=== PATIENT | female | born 1965 | race Hispanic/Latino ===

== ENCOUNTER 2017-07-26 18:18 | Observation (INO) | payer BC, SELFPAY ==
[~2017-07-26 18:18] MED LIST: ISOVUE-370 76%-LOCM 1 ML ONE
[2017-07-26 18:42] LABS: #Eosinphils 0.1 thou/uL (0.0-0.7); #Lymphocytes 1.6 thou/uL (1.20-3.40); #Monocytes 0.4 thou/uL (0.11-0.59); #Neutrophils 4.2 thou/uL (1.40-6.50); %Basophils 0.6 % (0.0-1.0); %Eosinophils 2.2 % (0.0-10.0); %Lymphocytes 24.9 % (21.0-51.0); %Monocytes 6.6 % (0.0-10.0); %Neutrophils 65.8 % (42.0-75.0); Hemoglobin 7.8 g/dL (12.0-16.0); Mean Corpuscular HGB CONC 30.9 g/dL (32.0-36.0); Mean Corpuscular Hemoglobin 20.7 pg (27.0-31.0); Mean Platelet Volume 8.2 fL (7.4-10.4); Platelet Count 206 thou/uL (130-400); RBC Distribution Width 15.5 % (11.5-14.5); Red Blood Cell (RBC) Count 3.76 mill/uL (4.20-5.40); White Blood Cell (WBC) Count 6.3 thou/uL (4.8-10.8)
[2017-07-26 18:55] LABS: Anisocytosis SLIGHT = 6-15 cells (100X) (0-5/hpf); Hypochromia SLIGHT = 6-15 cells (100X) (0-5/hpf); MDiff Complete? YES; Microcytosis SLIGHT = 6-15 cells (100X) (0-5/hpf); Ovalocytes SLIGHT = 2-5 cells (100X) (0-1/hpf); PLT Morphology Comment Appears Adequate; Polychromasia MODERATE = 3-4 cells (100X) (0-2/hpf); Target Cells SLIGHT = 2-5 cells (100X) (0-1/hpf)
[2017-07-26 19:05] LABS: ALT (SGPT) 15 U/L (8-55); AST (SGOT) 10 U/L (5-34); Albumin 4.2 g/dL (3.5-5.0); Alkaline Phosphatase 117 U/L (40-150); Anion Gap 10 mmol/L (10-20); BUN (Urea Nitrogen) 9 mg/dL (9.8-20.1); Bilirubin, Total 0.3 mg/dL (0.2-1.2); CK (CPK) 44 U/L (29-168); Calc. Creatinine Clearance 0 mL/min (70-130); Calcium 9.4 mg/dL (7.8-10.44); Carbon Dioxide 29 mmol/L (22-29); Chloride 104 mmol/L (98-107); Estimated GFR-MDRD 89; Globulin 3.3 g/dL (2.4-3.5); Glucose 75 mg/dL (70-105); Potassium 3.4 mmol/L (3.5-5.1); Protein, Total 7.5 g/dL (6.0-8.3); Sodium 140 mmol/L (136-145)
[2017-07-26 19:09] LABS: CKMB 0.6 ng/mL (0-6.6); Troponin I Less than 0.010 ng/mL (< 0.028)
--- NOTE | 2017-07-26 19:45 | RAD ---
SINGLE VIEW OF THE CHEST 07/26/17 COMPARISON: 12/24/16 HISTORY: Chest pain. FINDINGS: Single view of the chest shows a normal sized cardiomediastinal silhouette. There is no evidence of c onsolidation, mass, or pleural effusion. The bones are unremarkable. IMPRESSION: No evidence of acute cardiopulmonary disease. POS: [facility]
--- NOTE | 2017-07-26 21:17 | CT ---
CTA OF THE CHEST WITH CONTRAST 07/26/17 COMPARISON: None. HISTORY: Chest pressure off and on since yesterday evening. Elevated D-dimer. TECHNIQUE: Multiple contiguous axial images were obtained in a CTA of the chest with contrast per pulmonary embo lism protocol. 3D oblique reformats and direct coronal reformats were performed. FINDINGS: The pulmonary arteries are well opacified without filling defects to suggest pulmonary emboli. The he art is normal in size without focal cardiac abnormality. There is a mildly prominent AP window lymph node measuring 1.4 cm in short axis. No other enlarged mediastinal or hilar lymph nodes are present. No focal infiltrates are seen in the lungs. Atelectasis is seen in the lung bases. No pneumothorax or pleural effusion are seen. No suspicious pulmonary nodules are seen. The patient is status post cholecystectomy. Calcifications in the spleen are from prior granulomatous disease. The other visualized subdiaphragmatic structures are unremarkable. Degenerative changes are seen in the spine. The chest wall soft tissues are unremarkable. IMPRESSION: 1. No evidence of pulmonary thromboembolism. 2. Nonspecific mildly enlarged AP window lymph node. POS: [facility]
[2017-07-26 21:43] LABS: Iron 17 ug/dL (50-170); Iron Binding Capacity, Total 445 mcg/dL (265-497)
[2017-07-26 21:48] LABS: Ferritin Less than 2.00 ng/mL (10-291); Thyroid Stimulating Hormone 1.6034 uIU/mL (0.35-4.94)
[2017-07-26] MEDS ORDERED: Ondansetron ODT 4 MG TAB SL PRN (23:07)
[2017-07-26] MEDS ORDERED: Acetaminophen 325 MG TAB PO PRN ×2 (23:07→23:11)
[2017-07-26] MEDS ORDERED: Sodium Chloride 0.9% 1,000 ML IV SCH (23:07)
[2017-07-26] MEDS ORDERED: Ondansetron HCl/PF 4 MG/2 ML Vial IVP PRN ×2 (23:07→23:11)
[2017-07-26] MEDS ORDERED: Diabetic Tussin 200 MG/10 ML UDCUP PO PRN (23:11)
[2017-07-26] MEDS ORDERED: Senokot 8.6 MG TAB PO PRN (23:11)
[2017-07-26] MEDS ORDERED: Artificial Tears 18 DROP/0.9 ML EA EYE PRN (23:11)
[2017-07-26] MEDS ORDERED: Eucerin (Mineral Oil/Petrolatum,White) 30 gm Jar TOP PRN (23:11)
[2017-07-26] MEDS ORDERED: Dextrose 5% in Water 1,000 ML IV PRN (23:11)
[2017-07-26] MEDS ORDERED: HumaLOG 300 UNITS/3 ML VIAL SC PRN ×2 (23:11)
[2017-07-26] MEDS ORDERED: Dextrose 50% Abboject 50 ML SYRINGE SLOW IVP PRN (23:11)
[2017-07-26] MEDS ORDERED: HYDROcodone/Acetaminophen 5/325 mg Tablet PO PRN (23:11)
[2017-07-26] MEDS ORDERED: Chloraseptic Spray 180 ml Bottle PO PRN (23:11)
[2017-07-26] MEDS ORDERED: Sodium Chloride 0.65% Nasal 44 ML BOT EA NARE PRN (23:11)
[2017-07-26] MEDS ORDERED: Loratadine 10 MG TAB PO PRN (23:11)
[2017-07-26] MEDS ORDERED: Zolpidem Tartrate 5 MG TAB PO PRN (23:11)
[2017-07-26] MEDS ORDERED: Milk Of Magnesia 30 ML UDCUP PO PRN (23:11)
[2017-07-26] MEDS ORDERED: Loperamide HCl 2 MG CAP PO PRN (23:11)
[2017-07-26] MEDS ORDERED: Ondansetron ODT 4 MG TAB PO PRN (23:11)
[2017-07-26] MEDS ORDERED: hydrALAZINE 20 MG/ML VIAL SLOW IVP PRN (23:11)
[2017-07-26] MEDS ORDERED: Mag-Al 1200 mg/1200 mg/30 ML UDCUP PO PRN (23:11)
[2017-07-26] MEDS ORDERED: Morphine 5 MG/ML SYRINGE SLOW IVP PRN (23:14)
[2017-07-26 23:48] LABS: Troponin I Less than 0.010 ng/mL (< 0.028)
[2017-07-26] MEDS ORDERED: Iron Sucrose Complex 200 MG in Sodium Chloride 0.9% 250 ML 250 ML IVPB SCH (23:59)
[2017-07-27 00:13] VITALS: BMI 33.5
[2017-07-27] MEDS ORDERED: Acetaminophen/Codeine 30-300mg Tablet PO PRN (02:51)
[2017-07-27 03:20] LABS: Cardiac Risk 2.9 (Less than 4.5); Troponin I Less than 0.010 ng/mL (< 0.028)
--- NOTE | 2017-07-27 04:08 | HP ---
PRIMARY CARE PHYSICIAN: Dr. Soriano at [facility]. DATE OF SERVICE: 07/26/2017 REASON FOR ADMISSION: Chest pain. HISTORY OF PRESENT ILLNESS: A 52-year-old female with a history of coronary artery disease, diabetes, hypertension, and dyslipidemia who came to emergency room with complaint of chest pain. The patient reports that chest pain had occurs on exertion associated with shortness of breath, fatigue, and dizziness. She denies any melena or hematochezia. She denies any hematemesis associated nausea, vomiting or diaphoresis. She denies any orthopnea, PND or leg swelling. The patient reports that she has a history of DVT and she finished anticoagulant therapy in June. She denies any pleuritic chest pain. The patient does have history of coronary artery disease with a stent. With these symptoms, she presented to emergency room, she was having 8/10 in intensity pain. The patient's pain improved after morphine. REVIEW OF SYSTEMS: The following complete review of systems was negative, unless otherwise mentioned in the HPI or below: Constitutional: Weight loss or gain, ability to conduct usual activities. Skin: Rash, itching. Eyes: Double vision, pain. ENT/Mouth: Nose bleeding, neck stiffness, pain, tenderness. Cardiovascular: Palpitations, dyspnea on exertion, orthopnea. Respiratory: Shortness of breath, wheezing, cough, hemoptysis, fever or night sweats. Gastrointestinal: Poor appetite, abdominal pain, heartburn, nausea, vomiting, constipation, or diarrhea. Genitourinary: Urgency, frequency, dysuria, nocturia. Musculoskeletal: Pain, swelling. Neurologic/Psychiatric: Anxiety, depression. Allergy/Immunologic: Skin rash, bleeding tendency. Please see my HPI for pertinent positive and negative. All other review of system reviewed and negative except as mentioned in the HPI. PAST MEDICAL HISTORY: Gastroesophageal reflux disease, history of migraine headache, coronary artery disease with history of [place], history of DVT, history of ischemic CVA in 2008 with right-sided deficit, history of pericarditis, diabetes type 2 requiring insulin, dyslipidemia, hypertension, lupus, peripheral neuropathy, and T11 compression fracture. PAST SURGICAL HISTORY: Cardiac catheterization with stent placement, cholecystectomy, left hand surgery, tubal ligation. PAST PSYCHIATRIC HISTORY: Reviewed and negative. SOCIAL HISTORY: The patient is . She denies any tobacco, alcohol or illicit drug abuse. FAMILY HISTORY: Positive for coronary artery disease as well as cancer to family members. Diabetes and hypertension runs among several family members. ALLERGIES: METOPROLOL gives cough, NITROGLYCERIN gives rash. CURRENT HOME MEDICATIONS: Lyrica 150 mg p.o. b.i.d., aspirin 81 mg p.o. daily, gabapentin 100 mg 2 capsules 3 times daily, atenolol 50 mg twice daily, lisinopril 2.5 mg p.o. daily, Nexium 40 mg p.o. twice daily, Excedrin as needed basis, sucralfate 1 gram p.o. t.i.d., Lipitor 80 mg p.o. at bedtime, metformin 500 mg p.o. twice daily, and glipizide 5 mg twice daily. EMERGENCY ROOM COURSE: Reviewed. PHYSICAL EXAMINATION: VITAL SIGNS: On arrival, blood pressure 152/84, pulse 65, respiratory rate 22, temperature 98.1, saturation 98% on room air, weight 87.5 kilograms. GENERAL: The patient is currently alert, awake, no obvious acute distress. HEAD: Normocephalic, atraumatic. EYES: Pupils round, reactive to light. Conjunctivae pale. ENT: Oropharynx within normal limit. Pale mucous membrane. No oral lesion, no pharyngeal erythema, no exudate. NECK: Supple, no JVD, no thyromegaly, no carotid bruit. LUNGS: Clear to auscultation without any rhonchi or rales. CARDIAC: S1, S2 regular without any murmur. ABDOMEN: Soft, bowel sounds present, nontender, nondistended. No organomegaly , no mass, no suprapubic tenderness. BACK: Unremarkable, no CVA tenderness. EXTREMITIES: Upper extremities: Passive movement of all joints are normal. Lower extremities: No edema. Good peripheral pulsation, no calf tenderness. SKIN: No skin rash. HEMATOLOGICAL SYSTEM: No lymphadenopathy. PSYCHIATRIC: Normal affect. SIGNIFICANT LABS: EKG showing LVH, nonspecific ST-T changes. Chest x-ray based on my review, no acute cardiopulmonary process. CT angio negative for pulmonary embolism. CBC: WBC of 6.3, hemoglobin 7.8, MCV 67, platelet 206. D- dimer 0.84. BMP: Sodium 140, potassium 3.4, chloride 104, carbon dioxide 29, BUN 9, creatinine 0.69, glucose 75, calcium 9.4. LFT: AST 10, ALT 15, alkaline phosphatase 117, albumin 4.2. BNP 285.4. Iron 17, TIBC 445, percent iron saturation 4, ferritin less than 2. Cardiac enzymes negative. TSH 1.60. ASSESSMENT AND PLAN/IMPRESSION: 1. Chest pain, most likely related with anemia. She has underlying coronary artery disease with a stent as well as several risk factors for coronary artery disease. She had elevated D-dimer, but CT angio negative for pulmonary embolism. At this point, cardiac enzymes were negative. The patient will need admission for rule out acute coronary syndrome. We will do serial cardiac enzymes x3. We will check lipid profile for risk stratification and for diagnostic reason, we will perform stress test tomorrow morning. We will monitor on telemetry floor. Meanwhile, we will continue with aspirin 325 mg p.o. daily. 2. Iron deficiency anemia. Iron study consistent with iron deficiency anemia. This patient will be given iron infusion one time dose tonight and we will continue ferrous sulfate 325 mg p.o. b.i.d. This patient is instructed to get outpatient EGD and colonoscopy for evaluation of iron deficiency anemia. 3. Elevated D-dimer, but negative CT angio. 4. Elevated BNP. We will obtain echocardiography to assess ejection fraction and other structural abnormality, most likely related with hyperdynamic circulation from anemia. 5. Hypokalemia. We will replace potassium chloride 40 mEq p.o. one time dose. 6. Hypertension. We will continue lisinopril 2.5 mg p.o. daily. 7. Diabetes type 2. We will continue insulin as per sliding scale per protocol. Continue glipizide 5 mg p.o. b.i.d., metformin 500 mg p.o. b.i.d. 8. Diabetic neuropathy. Continue Lyrica 150 mg p.o. b.i.d. 9. Coronary artery disease. Continue aspirin 81 mg p.o. daily, atenolol 50 mg p.o. b.i.d. after stress test and Lipitor 80 mg p.o. at bedtime. 10. Dyslipidemia. Continue Lipitor 80 mg p.o. at bedtime. 11. Gastroesophageal reflux disease. Continue Pepcid 20 mg p.o. b.i.d. 12. Migraine headache. We will use Excedrin as needed basis. 13. Deep venous thrombosis prophylaxis not needed because we are expecting discharge in 24 hours. 14. Gastrointestinal prophylaxis. The patient is already on Pepcid therapy. 15. Code status: The patient is FULL CODE. Disposition plan based on clinical course. We are expecting patient's stay in hospital 24 hours. Plan of care discussed with the patient in detail. MTDD
[2017-07-27] MEDS ORDERED: glipiZIDE 5 MG TAB PO SCH (07:30)
[2017-07-27] MEDS ORDERED: Ferrous Sulfate 325 MG TAB PO SCH (08:00)
[2017-07-27 08:11] LABS: CKMB 0.4 ng/mL (0-6.6); Troponin I Less than 0.010 ng/mL (< 0.028)
[2017-07-27] MEDS ORDERED: Pregabalin 75 MG CAP PO SCH (09:00)
[2017-07-27] MEDS ORDERED: Aspirin 325 mg Enteric Coated Tablet PO SCH (09:00)
[2017-07-27] MEDS ORDERED: Lisinopril 2.5 MG TAB PO SCH (09:00)
[2017-07-27] MEDS ORDERED: Gabapentin 100 MG CAP PO SCH (09:00)
[2017-07-27] MEDS ORDERED: Aspirin 325 MG TAB PO SCH (09:00)
[2017-07-27] MEDS ORDERED: Famotidine 20 MG TAB PO SCH (09:00)
[2017-07-27] MEDS: Sucralfate 1 GM TAB PO SCH ×2 (12:30→12:31)
[2017-07-27 12:31] VITALS: BP 161/72; TEMP 98.5
[2017-07-27] MEDS: Metoclopramide HCl 10 MG TAB PO SCH ×2 (12:32)
--- NOTE | 2017-07-27 14:43 | NM ---
MYOCARDIAL PERFUSION EVALUATION: INDICATION: History of chest pain. RADIOPHARMACEUTICAL: 30 mCi Technetium 99m sestamibi with stress and 10.2 mCi Technetium 99m sestamibi IV with rest. COMPARISON: Prior exam dated 08/22/10. FINDINGS: There is a large-sized prominent defect involving the mid to apical anteroseptal wall as well as the basal to apical septal wall that is fixed on both the rest and stress images. No apparent wall thick ening is seen involving flow at this location. There is hypokinesis of the septum and anteroseptal w all. The LVF is diminished at 45%. IMPRESSION: 1. Large fixed defect involving the anteroseptal wall and septum suspicious for a large chronic myoc ardial infarct. There is hypokinesis involving the anteroseptal wall and septal wall on the gated im ages 2. Left ventricular ejection fraction is slightly diminished at 45%. Normal myocardial perfusion evaluation. 3. No new reversible myocardial perfusion defect evident. POS: [facility]
--- NOTE | 2017-07-27 15:06 | DIS ---
DATE OF ADMISSION: 07/26/2017 DATE OF DISCHARGE: 07/27/2017 PRIMARY CARE PROVIDER: Dr. Soriano. DISCHARGE DISPOSITION: Discharged home. DIAGNOSES: Noncardiac chest pain; iron deficiency anemia; hypertension; dyslipidemia; diabetes gaurav jade, type 2; coronary artery disease; polyneuropathy. DISCHARGE MEDICATIONS: Same as her home medicines. Nexium 40 mg twice a day, metformin 500 mg twice a day, metoclopramide 5 mg 3 times a day, Zestril 2.5 mg a day, gabapentin 200 mg 3 times a day, mc rvastatin 80 mg p.o. at bedtime, glipizide 5 mg twice a day, aspirin 81 mg a day, pregabalin 150 mg t wice a day, atenolol 50 mg twice a day, Tylenol with Codeine every 4 hours as needed for pain, sucral fate 1 gram q.i.d. ALLERGIES: NITROGLYCERIN from NITRO-BID AND METOPROLOL. HOSPITAL COURSE: Admitting complaint was chest pain described as exertional with some shortness of b reath. No other associated symptoms. Her stress test, she had a CTA of the thorax, which revealed n o evidence of pulmonary thromboembolism. Her laboratory comp metabolic profile revealed a minimal lo w potassium 3.4, otherwise normal. The patient's cardiac enzymes were normal. Patient had very low iron stores with less than 2 ferritin, hemoglobin revealed 7.8 with microcytic-microchromic indices. White count 6.3 and platelet count 206,000. The patient underwent a cardiac stress test with nuclea r medicine, which revealed a fixed defect with no reversible changes. Echocardiogram revealed an EF of 40%-45%. It is pertinent the patient is already on a beta jean and an RUMA inhibitor. Today, s he feels well. Vital signs are stable. Cardiorespiratory exam is normal. She is comfortable with [facility]. She is being discharged. CONSULTATIONS: None. PROCEDURES: None. FOLLOWUP: In [address] Montoya. DIET: Diabetes mellitus diet. ACTIVITY: As tolerated.
[2017-07-27] MEDS ORDERED: ADENOSINE 60 MG/20 ML VIAL ONE (15:15)
[2017-07-27] MEDS ORDERED: Atorvastatin Calcium 40 MG TAB PO SCH (21:00)
[2017-07-27] MEDS ORDERED: Cyclobenzaprine 10 MG TAB PO SCH (21:00)
--- NOTE | 2017-07-28 12:45 | ADD-DIS ---
ADDENDUM FOLLOWUP: The patient received IV iron infusion for severe iron deficiency anemia during her [facility] hospital stay.
== END 2017-07-27 15:53 | disposition home or self-care (01) ==
LOC: ERS 18:18 → 2SW 23:03
PROVIDERS: ADMIT Internal Medicine; ATTEND Internal Medicine
DX: R07.89 Other chest pain (principal); D50.9 Iron deficiency anemia, unspecified; I10 Essential (primary) hypertension; E78.5 Hyperlipidemia, unspecified; E11.42 Type 2 diabetes mellitus with diabetic polyneuropathy; K21.9 Gastro-esophageal reflux disease without esophagitis; G43.909 Migraine, unspecified, not intractable, without status migrainosus; I25.2 Old myocardial infarction; I69.351 Hemiplegia and hemiparesis following cerebral infarction affecting right dominant side; M32.9 Systemic lupus erythematosus, unspecified; E87.6 Hypokalemia; I25.10 Atherosclerotic heart disease of native coronary artery without angina pectoris; Z79.82 Long term (current) use of aspirin; Z79.84 Long term (current) use of oral hypoglycemic drugs; Z79.2 Long term (current) use of antibiotics; Z79.899 Other long term (current) drug therapy; Z88.8 Allergy status to other drugs, medicaments and biological substances; Z98.51 Tubal ligation status; Z95.5 Presence of coronary angioplasty implant and graft; Z90.49 Acquired absence of other specified parts of digestive tract; Z98.890 Other specified postprocedural states; Z86.718 Personal history of other venous thrombosis and embolism
CPT/HCPCS: 36415; 36416; 71045; 71275; 78452; 80053; 80061; 82553; 82728; 83540; 83550; 83880; 84443; 84484; 85025; 85379; 93005; 93017; 93306; 96365; 96366; 96375; J2270; A4216; A9500; G0378; J0153; J1756; J7050

== ENCOUNTER 2018-02-10 18:06 | Observation (INO) | payer BC, SELFPAY ==
[2018-02-10 19:09] LABS: Mean Corpuscular HGB CONC 31.5 g/dL (32.0-36.0); Mean Corpuscular Hemoglobin 22.9 pg (27.0-31.0); Mean Corpuscular Volume 72.6 fL (78.0-98.0); Platelet Count 293 thou/uL (130-400); RBC Distribution Width 19.3 % (11.5-14.5); Red Blood Cell (RBC) Count 4.83 mill/uL (4.20-5.40); White Blood Cell (WBC) Count 5.7 thou/uL (4.8-10.8)
[2018-02-10 19:18] LABS: ALT (SGPT) 12 U/L (8-55); AST (SGOT) 12 U/L (5-34); Albumin 4.2 g/dL (3.5-5.0); Alkaline Phosphatase 96 U/L (40-150); Anion Gap 15 mmol/L (10-20); BUN (Urea Nitrogen) 12 mg/dL (9.8-20.1); Bilirubin, Total 0.3 mg/dL (0.2-1.2); Calc. Creatinine Clearance 0 mL/min (70-130); Calcium 9.8 mg/dL (7.8-10.44); Carbon Dioxide 22 mmol/L (22-29); Chloride 103 mmol/L (98-107); Estimated GFR-MDRD 80; Glucose 182 mg/dL (70-105); Potassium 3.7 mmol/L (3.5-5.1); Protein, Total 8.2 g/dL (6.0-8.3); Sodium 136 mmol/L (136-145)
[2018-02-10 19:22] LABS: CKMB 0.3 ng/mL (0-6.6); Troponin I Less than 0.010 ng/mL (< 0.028)
--- NOTE | 2018-02-10 19:23 | RAD ---
PORTABLE CHEST: 02/10/18 HISTORY: Chest pain and pressure. COMPARISON: 07/26/17 exam. Heart size and mediastinum are within normal limits. The lungs are clear of any infiltrative process. IMPRESSION: No active intrathoracic disease. POS: [facility]
[2018-02-10 19:27] LABS: #Eosinphils 0.1 thou/uL (0.0-0.7); #Lymphocytes 1.6 thou/uL (1.20-3.40); #Monocytes 0.3 thou/uL (0.11-0.59); #Neutrophils 3.6 thou/uL (1.40-6.50); %Basophils 0.3 % (0.0-1.0); %Eosinophils 2.1 % (0.0-10.0); %Lymphocytes 28.8 % (21.0-51.0); %Monocytes 5.8 % (0.0-10.0); Anisocytosis SLIGHT = 6-15 cells (100X) (0-5/hpf); Hypochromia SLIGHT = 6-15 cells (100X) (0-5/hpf); MDiff Complete? YES; Microcytosis SLIGHT = 6-15 cells (100X) (0-5/hpf); PLT Morphology Comment Appears Adequate
[2018-02-10] MEDS ORDERED: Metoprolol Tartrate 5 MG/5 ML VIAL ONE (20:01)
[2018-02-10] MEDS ORDERED: Atenolol 25 MG TAB PO SCH (20:45)
[2018-02-10 22:56] LABS: Troponin I Less than 0.010 ng/mL (< 0.028)
[2018-02-10 23:13] VITALS: BMI 34.2
[2018-02-10] MEDS ORDERED: Ondansetron ODT 4 MG TAB SL PRN (23:20)
[2018-02-10] MEDS ORDERED: Ondansetron HCl/PF 4 MG/2 ML Vial IVP PRN (23:20)
[2018-02-10] MEDS ORDERED: Methocarbamol 500 MG TAB PO SCH (23:45)
[2018-02-10] MEDS ORDERED: Pregabalin 75 MG CAP PO SCH (23:45)
[2018-02-10] MEDS: Isosorbide Mononitrate 20 MG TAB PO SCH (23:49)
[2018-02-11 01:43] LABS: Troponin I Less than 0.010 ng/mL (< 0.028)
[2018-02-11 02:13] LABS: #Eosinphils 0.2 thou/uL (0.0-0.7); #Lymphocytes 1.8 thou/uL (1.20-3.40); #Monocytes 0.4 thou/uL (0.11-0.59); #Neutrophils 2.6 thou/uL (1.40-6.50); %Eosinophils 3.3 % (0.0-10.0); %Lymphocytes 35.5 % (21.0-51.0); %Neutrophils 53.3 % (42.0-75.0); Hemoglobin 9.5 g/dL (12.0-16.0); Mean Corpuscular HGB CONC 31.1 g/dL (32.0-36.0); Mean Corpuscular Hemoglobin 22.8 pg (27.0-31.0); Mean Corpuscular Volume 73.4 fL (78.0-98.0); Mean Platelet Volume 9.8 fL (7.4-10.4); Platelet Count 248 thou/uL (130-400); RBC Distribution Width 19.6 % (11.5-14.5); Red Blood Cell (RBC) Count 4.15 mill/uL (4.20-5.40); White Blood Cell (WBC) Count 4.9 thou/uL (4.8-10.8)
[2018-02-11 03:04] LABS: Anion Gap 15 mmol/L (10-20); BUN (Urea Nitrogen) 13 mg/dL (9.8-20.1); Calc. Creatinine Clearance 103 mL/min (70-130); Calcium 9.1 mg/dL (7.8-10.44); Carbon Dioxide 22 mmol/L (22-29); Chloride 103 mmol/L (98-107); Estimated GFR-MDRD 70; Glucose 262 mg/dL (70-105); Potassium 3.4 mmol/L (3.5-5.1); Sodium 137 mmol/L (136-145)
[2018-02-11] MEDS ORDERED: Dextrose 50% Abboject 50 ML SYRINGE SLOW IVP PRN (04:24)
[2018-02-11] MEDS ORDERED: Dextrose 5% in Water 1,000 ML IV PRN (04:24)
[2018-02-11] MEDS ORDERED: Nitroglycerin 0.4 MG TAB (25 Tab Bottle) SL PRN (04:50)
[2018-02-11] MEDS ORDERED: Morphine 2 MG/ML SYRINGE SLOW IVP PRN (04:50)
[2018-02-11] MEDS: Aspirin 325 mg Enteric Coated Tablet PO SCH (08:36)
[2018-02-11] MEDS: Pregabalin 75 MG CAP PO SCH ×2 (08:36→19:54)
[2018-02-11] MEDS: Isosorbide Mononitrate 20 MG TAB PO SCH ×3 (08:37→19:56)
[2018-02-11] MEDS: Methocarbamol 500 MG TAB PO SCH ×3 (08:38→19:55)
[2018-02-11] MEDS: Lisinopril 5 MG TAB PO SCH (08:38)
[2018-02-11] MEDS: Atenolol 25 MG TAB PO SCH ×2 (08:38→19:55)
[2018-02-11] MEDS ORDERED: Aspirin 325 MG TAB PO SCH (09:00)
[2018-02-11] MEDS: Acetaminophen 325 MG TAB PO PRN ×2 (10:42→21:28)
[2018-02-11 12:38] LABS: Hemoglobin 9.2 g/dL (12.0-16.0)
--- NOTE | 2018-02-11 12:51 | PDOC.PN ---
- Subjective Encounter Start Date: 02/11/18 Encounter Start Time: 08:30 Subjective: f/u on new admission for chest pain - Objective Resuscitation Status: Resuscitation Status FULL:Full Resuscitation Vital Signs & Weight: Vital Signs (12 hours) Temp Pulse Resp BP Pulse Ox 02/11/18 11:19 98.6 F 61 18 136/68 92 L 02/11/18 04:40 98.3 F 59 L 16 139/68 93 L 02/11/18 04:00 98.4 F 60 20 125/68 92 L Weight Weight 85.02 kg I&O: 02/10/18 02/11/18 02/12/18 06:59 06:59 06:59 Intake Total 390 Output Total 325 Balance 65 Result Diagrams: 02/11/18 11:51 02/11/18 01:05 Additional Labs: Accuchecks 02/11/18 02/11/18 02/10/18 10:34 04:59 23:02 POC Glucose 246 H 267 H 200 H Phys Exam - Physical Examination HEENT: PERRLA, moist MMs, sclera anicteric Neck: no nodes, no JVD Respiratory: clear to auscultation bilateral Cardiovascular: RRR Musculoskeletal: no edema, pulses present Neurological: non-focal, normal sensation, moves all 4 limbs Lymphatic: no nodes Psychiatric: normal affect, A&O x 3 Skin: no rash, normal turgor, cap refill <2 seconds Dx/Plan (1) Chest pain Code(s): R07.9 - CHEST PAIN, UNSPECIFIED Status: Acute (2) DM type 2 (diabetes mellitus, type 2) Status: Chronic (3) Iron deficiency anemia Code(s): D50.9 - IRON DEFICIENCY ANEMIA, UNSPECIFIED Status: Chronic Qualifiers: Iron deficiency anemia type: chronic blood loss Qualified Code(s): D50.0 - Iron deficiency anemia secondary to blood loss (chronic) (4) HTN (hypertension) Code(s): I10 - ESSENTIAL (PRIMARY) HYPERTENSION Status: Chronic (5) GERD (gastroesophageal reflux disease) Code(s): K21.9 - GASTRO-ESOPHAGEAL REFLUX DISEASE WITHOUT ESOPHAGITIS Status: Chronic (6) Neuropathy Code(s): G62.9 - POLYNEUROPATHY, UNSPECIFIED Status: Chronic (7) Migraine Code(s): G43.909 - MIGRAINE, UNSP, NOT INTRACTABLE, WITHOUT STATUS MIGRAINOSUS Status: Chronic - Plan cont current plan of care, plan discussed w/ family, DVT proph w/SCDs -: Cardiology consult -: Monitor labs -: Get records from last stress test/heart cath from [facility] -: continue home meds * .
--- NOTE | 2018-02-11 15:52 | HP ---
DATE OF EVALUATION: 02/11/2018 at 0800. PRIMARY CARE PHYSICIAN: Elias Soriano MD The patient is a FULL CODE. CHIEF COMPLAINT: Chest pain and pressure. HISTORY OF PRESENT ILLNESS: She is a 53-year-old female with a history of cardiac disease, who prese nted to the ER on 02/10/2018 with chest pain, nausea, dizziness, and generally feeling weak x2 days. Reports an DC and stent placement 1 year ago. Reports she had a positive stress test and a cardiac catheterization 6 weeks ago in [place] where she was visiting her son. She reports they told her, her stent was blocked and she had another vessel with blockage, but declined to do any intervention due to her anemia, reports taking aspirin 325 daily, and she has a HeartScore of 5. EKG, 65 beats pe r minute. ST normal, LVH with strain. The patient was admitted to the hospital for further manageme nt and cardiology consultation. REVIEW OF SYSTEMS: Constitutional: The patient reports general weakness. Denies chills. Denies fe barrera. Eyes: Negative review of systems. ENT: Negative ears, nose, and throat review of systems. C ardiovascular: The patient reports chest pain, denies palpitations, denies orthopnea. Respiratory S ystem: Negative review of systems. Denies cough or shortness of breath. Gastrointestinal: The pat ient reports nausea. Denies abdominal pain. Denies constipation or diarrhea. Musculoskeletal: Neg ative review. Skin: Negative review of systems. Neurologic: Patient reports dizziness and reports headache. Endocrine: Negative review of systems. Heme/Lymphatic: Normal system review. Psychiat catherine: Negative review of systems. All other review of systems negative except which are listed in th e HPI. PHYSICAL EXAMINATION: CONSTITUTIONAL: Vital signs are reviewed. Temperature 98.4, pulse is 60, respirations 20, O2 sats 9 2 on room air, blood pressure 125/68. The patient appears nontoxic. She is alert and oriented, is i n no distress. HEENT: Head includes findings of atraumatic and normocephalic exam. Eyes: Eyelids Normal to inspec tion. PERRLA. ENT: Nose exam normal, no nasal defect. No bleeding. Mouth with moist membranes. NECK: Normal range of motion. Trachea is midline. RESPIRATORY: Chest exam is normal. Breath sounds are clear. No wheezing, no rales. Chest movement is symmetrical. Chest expansion is equal. CARDIOVASCULAR: Cardiovascular assessment has normal heart rate and rhythm. Heart sounds are normal . No rubs or gallops are noted. ABDOMINAL/FEMALE: Including nontender. Bowel sounds are normal. No peritoneal signs. BACK: Normal inspection, range of motion. EXTREMITIES: Moves all extremities, upper and lower. NEURO: The patient is oriented to person, place, and time. Speech is normal. No focal defects. SKIN: Warm, dry, normal in color. LYMPHATIC: Normal. PSYCHIATRIC: Also normal. The patient is oriented to person, place, and time. LABORATORY DATA: White blood cell count is 5.7, RBCs are 4.83, hemoglobin is 11, hematocrit is 35, p latelet count is 293. Sodium is 137, potassium is 3.4, chloride is 103, BUN is 13, creatinine is 0.8 5, GFR is 70, glucose is 262, calcium is 9.1. Troponins x3 are negative. CK-MB is 0.3. PAST MEDICAL HISTORY: Patient reports history of GERD, migraine headaches, significant cardiac histo ry including an DC and stent placement in 06/2016. Reports positive stress test and a cardiac cathet erization 6 weeks ago in [place]. Reports an ischemic CVA in 2008 with some right-sided defects; history of pericarditis; history of a DVT; history of diabetes, type 2, on p.o. and insulin; history of hyperlipidemia; history of hypertension; history of lupus; history of peripheral neuropathy; and h istory of rib fracture on T11. PAST SURGICAL HISTORY: Heart stent x1, cholecystectomy, and a tubal ligation. She has had a cardiac catheterization x2. PSYCHIATRIC HISTORY: No previous psychiatric history is noted. SOCIAL HISTORY: Denies alcohol use or drug use. No smoking. FAMILY HISTORY: Paternal history of cardiac disease and cancer. Maternal history of diabetes, hyper lipidemia, and hypertension. Maternal history also of cancer. ALLERGIES: METOPROLOL and TRANSDERMAL NITROGLYCERIN. CURRENT MEDICATIONS: Include aspirin 325 mg p.o. daily, Excedrin 2 tabs p.o. b.i.d., atenolol 25 mg p.o. b.i.d., Nexium 40 mg p.o. b.i.d., glipizide 5 mg p.o. b.i.d., NovoLog 15 units subcu t.i.d., iso sorbide 10 mg p.o. b.i.d., lisinopril 5 mg p.o. daily, metformin 500 mg p.o. b.i.d., Robaxin 500 mg p .o. t.i.d., nitroglycerin sublingual 0.4 mg every 5 minutes as needed, and Lyrica 150 mg p.o. b.i.d. IMAGING: She had a chest x-ray that showed no acute findings. ASSESSMENT AND PLAN: 1. Chest pain. We will obtain the records from the [facility] where she was seen 6 weeks a go and had a positive stress test and cardiac catheterization. We will consult Cardiology. Dr. Dao andrews is her conference center manager. 2. Hypertension. We will continue the isosorbide 10 mg p.o. b.i.d. 3. Diabetes mellitus. We will continue the metformin 500 mg b.i.d., glipizide 5 mg p.o. b.i.d., and Humalog 15 units subcutaneous t.i.d. 4. Diabetic neuropathy. We will continue the Lyrica 150 mg p.o. b.i.d. 5. Coronary artery disease. We will continue the aspirin and atenolol. 6. Gastroesophageal reflux disease. We will continue the Pepcid 20 mg p.o. b.i.d. and then Nexium 4 0 mg p.o. b.i.d. 7. Migraine. Excedrin as needed. 8. We will give the deep vein thrombosis prophylaxis, mechanical. Disposition plan, depends on clinical course.
[2018-02-11] MEDS: HumaLOG 300 UNITS/3 ML VIAL SC PRN (17:24)
[2018-02-12] MEDS: HumaLOG 300 UNITS/3 ML VIAL SC PRN ×2 (05:10→12:15)
[2018-02-12] MEDS: Pregabalin 75 MG CAP PO SCH (08:29)
[2018-02-12] MEDS: Atenolol 25 MG TAB PO SCH (08:30)
[2018-02-12] MEDS: Aspirin 325 mg Enteric Coated Tablet PO SCH (08:30)
[2018-02-12] MEDS: Lisinopril 5 MG TAB PO SCH (08:30)
[2018-02-12] MEDS: Methocarbamol 500 MG TAB PO SCH ×2 (08:31→16:29)
[2018-02-12] MEDS: Isosorbide Mononitrate 20 MG TAB PO SCH (08:31)
[2018-02-12 08:49] LABS: #Eosinphils 0.1 thou/uL (0.0-0.7); #Lymphocytes 1.2 thou/uL (1.20-3.40); #Monocytes 0.3 thou/uL (0.11-0.59); #Neutrophils 2.9 thou/uL (1.40-6.50); %Basophils 0.1 % (0.0-1.0); %Lymphocytes 26.1 % (21.0-51.0); %Monocytes 6.4 % (0.0-10.0); %Neutrophils 64.4 % (42.0-75.0); Hemoglobin 9.6 g/dL (12.0-16.0); Mean Corpuscular HGB CONC 31.6 g/dL (32.0-36.0); Mean Corpuscular Hemoglobin 22.9 pg (27.0-31.0); Mean Corpuscular Volume 72.5 fL (78.0-98.0); Platelet Count 231 thou/uL (130-400); RBC Distribution Width 19.1 % (11.5-14.5); White Blood Cell (WBC) Count 4.6 thou/uL (4.8-10.8)
[2018-02-12 09:14] LABS: ALT (SGPT) 10 U/L (8-55); AST (SGOT) 9 U/L (5-34); Albumin 3.7 g/dL (3.5-5.0); Alkaline Phosphatase 83 U/L (40-150); Anion Gap 12 mmol/L (10-20); BUN (Urea Nitrogen) 13 mg/dL (9.8-20.1); Bilirubin, Total 0.2 mg/dL (0.2-1.2); Calc. Creatinine Clearance 111 mL/min (70-130); Calcium 9.2 mg/dL (7.8-10.44); Carbon Dioxide 24 mmol/L (22-29); Chloride 104 mmol/L (98-107); Estimated GFR-MDRD 78; Globulin 3.3 g/dL (2.4-3.5); Glucose 214 mg/dL (70-105); Potassium 3.4 mmol/L (3.5-5.1); Sodium 137 mmol/L (136-145)
[2018-02-12 09:21] VITALS: TEMP 97.5
[2018-02-12] MEDS ORDERED: Aspirin/APAP/Caffeine Tab (Excedrin Migraine) PO PRN (10:03)
--- NOTE | 2018-02-12 11:18 | CON ---
DATE OF SERVICE: 02/12/2018 REASON FOR CONSULTATION: Recurrent chest pain. HISTORY OF PRESENT ILLNESS: Ms. Matos is a 53-year-old woman who recently presented with chest pa in. She describes it as a dull, substernal discomfort. No other ameliorating, exacerbating, or prec ipitating factors present. The patient is a patient of Dr. Rosa Lopez. She underwent coronary an giography in 06/2016 and underwent successful stent placement to the mid left anterior descending wit h a 2.75 x 20 mm Synergy stent. She states in November of this year, she also had recurrent pain. She was seen in outlying facility an d underwent coronary angiography. She was told she had a lesion that could potentially be revascular ized. Details are unknown. It was decided not to proceed with any further intervention due to anemi a. Again, hemoglobin at the outlying facility is unknown. PAST MEDICAL HISTORY: Coronary artery disease status post stent placement, acid reflux, migraine hea daches, CVA, diabetes mellitus, hyperlipidemia, peripheral neuropathy, cholecystectomy, BTL. SOCIAL HISTORY: No current tobacco or alcohol use. ALLERGIES: METOPROLOL and NITROGLYCERIN. HOME MEDICATIONS: Aspirin, Excedrin, glipizide, NovoLog, metformin, lisinopril, isosorbide, Robaxin and Lyrica. REVIEW OF SYSTEMS: Ten-point review of systems is reviewed and is as above, otherwise negative. PHYSICAL EXAMINATION: VITAL SIGNS: Blood pressure 141/66, pulse 62, temperature afebrile. GENERAL: Patient is a pleasant female who is in no acute distress. The patient appears her stated age. NEUROLOGIC: The patient is alert and oriented times 3 with no focal neurologic deficits. HEENT: Sclerae without icterus. Mouth has moist mucous membranes with normal pallor. NECK: No JVD. Carotid upstroke brisk. No bruits bilaterally. LUNGS: Clear to auscultation with unlabored respirations. BACK: No scoliosis or kyphosis. CARDIAC: Regular rate and rhythm with normal S1 and S2. No S3 or S4 noted. No significant rubs, murmurs, thrills, or gallops noted throughout the precordium. PMI is not displaced. There is no parasternal heave. ABDOMEN: Soft, nontender, nondistended. No peritoneal signs present. No hepatosplenomegaly. No abnormal striae. EXTREMITIES: 2+ femoral and 2+ dorsalis pedis pulses. No cyanosis, clubbing, or edema. SKIN: No gross abnormalities. PERTINENT LABS: CK and troponin negative. Hemoglobin is 9.5. IMPRESSION: 1. Angina. 2. Coronary artery disease. 3. Status post stent placement. RECOMMENDATIONS: It is of utmost importance to try and obtain records from [place]. She u nderwent coronary angiography recently. No need to proceed with angiography unless we know the findi ngs on angio performed less than 2 months ago. At this point, we will treat medically until those re cords are obtained and reviewed.
[2018-02-12] MEDS ORDERED: Isosorbide Mononitrate 20 MG TAB PO SCH (14:24)
[2018-02-12 15:08] VITALS: BP 162/81
--- NOTE | 2018-02-12 15:31 | PRG ---
DATE OF SERVICE: 02/12/2018. HISTORY OF PRESENT ILLNESS: Ms. Matos is doing well, no current complaints. No chest pain or pre ssure noted. I did review her recent angiogram before 1 month ago. She has an occluded stent to the left anterior descending in addition occluded stent to the right coronary artery. The right coronar y artery was very difficult to engage. PHYSICAL EXAMINATION: VITAL SIGNS: Blood pressure 140/66, pulse 60, temperature 97.5. LUNGS: Clear to auscultation. CARDIAC: Regular rate and rhythm. ABDOMEN: Soft, nontender, nondistended. EXTREMITIES: No edema. IMPRESSION: 1. Chronic stable angina. 2. Coronary artery disease. RECOMMENDATIONS: I discussed option with Ms. Matos. She could stay overnight and discuss t his further with Dr. Lopez with potential angiography and attempted revascularization which would be difficult. I also discussed increasing medical therapy. At this point, I have discussed the risks and benefits of both, she decided to proceed with medical therapy. We will increase her isosorbide t o 20 mg b.i.d. We would for discussing Ranexa. Plan is to follow up with Dr. Lopez in the next 1-2 weeks.
[2018-02-12] MEDS ORDERED: metFORMIN 500 MG TAB PO SCH (17:00)
--- NOTE | 2018-02-12 22:36 | DIS ---
DATE OF ADMISSION: 02/10/2018 DATE OF DISCHARGE: 02/12/2018 CODE STATUS: FULL. DISCHARGE DIAGNOSES: 1. Angina. 2. Iron deficiency anemia. 3. Gastroesophageal reflux disease. 4. Hypertension. 5. Neuropathy. 6. Diabetes mellitus 2. 7. Obesity. 8. Chronic kidney disease. 9. Hyperlipidemia. 10. Migraine. PROCEDURES: Chest x-ray in the ER on 02/10/2018 showed no acute process. CONSULTANTS: Dr. Canseco for Cardiology. Vital signs on discharge 97.5 temperature, pulse is 62, 18 respirations, 93% on room air, blood press ure 141/66. REVIEW OF SYSTEMS: CONSTITUTIONAL: The patient states she feels well. Denies any complaints. Denies fevers or chills. EYES: Negative review of systems. ENT: Negative ears, nose and throat review of systems. CARDIOVASCULAR: Denies any chest pain. Denies palpitations, denies orthopnea. RESPIRATORY: Denies any shortness of breath or dizziness. Denies cough or shortness of breath. GASTROINTESTINAL: The patient denies any nausea, vomiting or diarrhea. Denies abdominal pain, denie s constipation or diarrhea. MUSCULOSKELETAL: Negative review. SKIN: Warm and dry. Denies any rashes. NEUROLOGIC: Patient denies any dizziness. Does report a headache. ENDOCRINE: Negative review of systems. HEME/LYMPHATIC: Normal review of systems. PSYCH: Negative review of systems and all other review of systems negative except which are listed i n the history of present illness and hospital course. PHYSICAL EXAMINATION: CONSTITUTIONAL/VITAL SIGNS: As stated above. HEENT: Atraumatic and normocephalic exam. Eyes, eyelids are normal to inspection. PERRLA. Nose ex am is normal. No bleeding. Mouth with moist membranes. NECK: Normal range of motion. Trachea is midline. RESPIRATORY: Breath sounds are equal. No wheezing or rales. Chest movement is symmetrical. Chest expansion is equal. CARDIOVASCULAR: Normal heart rate and rhythm. Heart sounds are normal. No rubs or gallops. ABDOMEN: Nontender. Bowel sounds are normal. No peritoneal signs. BACK: Normal inspection, normal range of motion. EXTREMITIES: Moves all extremities. No peripheral edema. NEUROLOGIC: Patient is oriented to person, place and time. Speech is normal. No focal defects. SKIN: Warm, dry, normal in color. LYMPHATIC: Normal. PSYCHIATRIC: She is pleasant, oriented to person, place, and time. LABORATORY DATA: Today, 02/12/2018 white blood cell count 4.6, hemoglobin was 9.6, hematocrit 30.4, MCV 72.5, MCH 22.9, MCHC 31.6, RDW count 19.1, platelets were 231, sodium 137, potassium 3.4, chlorid e 104, carbon dioxide 24, gap 12, BUN is 13, creatinine is 0.77, estimated GFR is 78, glucose 214, ca lcium 9.2, bilirubin 0.2, AST is 9, ALT is 10, alkaline phosphatase is 83, CK-MB 0.3. Troponins, she had three done which were all negative. Albumin 3.7, globulin 3.3. HOSPITAL COURSE: A 53-year-old female who presented to the ED on 02/10/2018 for chest pain, dizzines s, generally feeling weak for 2 days. Patient with a cardiac stent placed on 06/2006. Echo repeated in 06/2017 with an EF of 40%. She states she had similar symptoms 6 weeks ago in [place] and und erwent a heart catheterization there. Reports that the coding director decided not to do any interventi ons and was sent home for further workup. Dr. Canseco saw patient in the hospital here and recomme nded that she can go home and increased her isosorbide to 20 mg b.i.d. DISCHARGE MEDICATIONS: She will be sent home on aspirin 325 mg p.o. daily, Excedrin 2 tabs p.o. b.i. d., atenolol 25 mg p.o. b.i.d., Nexium 40 mg p.o. b.i.d., glipizide 5 mg p.o. b.i.d., NovoLog 15 unit s subcu t.i.d., isosorbide increased to 20 mg p.o. b.i.d., Zestril 5 mg p.o. daily, metformin 500 mg p.o. b.i.d., Robaxin 500 mg p.o. t.i.d., nitroglycerin 0.4 mg tablets sublingual every 5 minutes x3 a s needed for chest pain, Lyrica 150 mg p.o. b.i.d., CONDITION ON DISCHARGE: Stable. She was discharged home and will need to follow up with Dr. Soriano within 1 week.
--- NOTE | 2018-02-13 12:40 | HP ---
PRIMARY CARE PHYSICIAN: Elias Soriano MD CODE STATUS: FULL CODE. TIME OF EVALUATION: 8:25 p.m. CHIEF COMPLAINT: Chest pain. HISTORY OF PRESENT ILLNESS: This is a 53-year-old female patient with past medical history of prior coronary artery disease. The patient reported her cardiac catheterization done a few weeks ago in [facility] that was positive for blockage, so we will try to get those records from [place] for the patient who was seen by Dr. Lopez to see what further plans will be. She also has a history of diab etes, hyperlipidemia, hypertension, lupus, came to the hospital after having chest pain that was in t he middle of the chest that was started in the past 2 days, although in the past few weeks, it has be en on and off. Pain is worsened with exertion and improved with nitroglycerin and rest, associated w ith nausea and headache. Pain was reported as moderate. REVIEW OF SYSTEMS: Constitutional: No fever, chills, or generalized weakness. Respiratory: No cou gh, no sputum production, no shortness of breath. Cardiovascular: Chest pain. No palpitations. Ga strointestinal: No nausea, no vomiting, diarrhea or abdominal pain. Central Nervous Systems: No di zziness, headache, or feeling lightheaded. Genitourinary: No burning on urination. Extremities: N o leg swelling. All other systems were reviewed and negative except for the findings mentioned above . PAST MEDICAL HISTORY: As mentioned in the HPI. PAST SURGICAL HISTORY: Positive for heart stent x1, cholecystectomy, left hand for dystrophy, and tu bal ligation. PSYCHIATRIC HISTORY: No previous psych history. SOCIAL HISTORY: No alcohol, no drugs, no smoking history. FAMILY HISTORY: Positive for father with history of malignancy of the lung, mother with type 2 diabe tiffany, hyperlipidemia, hypertension. KNOWN ALLERGIES: METOPROLOL, NITROGLYCERIN. REPORTED MEDICATIONS: Lyrica, aspirin, atenolol, lisinopril, Nexium, Excedrine, metformin, glipizide , Robaxin, NovoLog, FlexPen insulin, isosorbide. PHYSICAL EXAMINATION: VITAL SIGNS: On presentation, blood pressure 194/79 with heart rate 69, respiratory rate was 18, tem perature 98.6, pain was 7, oxygen saturation was 94% on room air. GENERAL APPEARANCE: Patient is alert, oriented, not in any acute distress. HEENT: Eye, normal conjunctivae. Moist oral mucosa. anicteric. NECK: No JVD. RESPIRATORY: Bilateral air entry. No rales, no wheezing. Symmetric expansion. CARDIOVASCULAR: Normal rate, regular rhythm. No murmurs, no gallop. EXTREMITIES: No edema. ABDOMEN: Soft, normal bowel sounds. MUSCULOSKELETAL: Baseline range of motion and strength. No tenderness. Peripheral pulses are prese nt. Capillary refill seems to be intact. SKIN: Warm and intact. No pallor, no rash, no redness. NEUROLOGIC: No evidence of any new focal weakness. Baseline speech. Cranial nerves seem to be inta ct. PSYCHIATRIC: The patient is in good mood. No anxiety. Oriented, optimal judgment. IMAGING: EKG was discussed with the performing physician from ER. The patient has normal sinus rhyt hm with a rate of 65, left ventricular hypertrophy. RADIOLOGY: Chest films are negative, no infiltrates, no pneumothorax or hemothorax. No CHF. LABORATORY DATA: Reviewed. The patient has white count 5.7, hemoglobin 11, MCV 72, platelet count 2 93,000. Sodium 136, potassium 3.7, chloride 103, carbon dioxide 22, anion gap 15, BUN 12, creatinine 0.7, GFR 80, glucose 182, calcium 9.8, total bilirubin 0.3. AST, ALT, and alkaline phosphatase are normal. Troponin is negative x3. ASSESSMENT AND PLAN: The patient will be place in the hospital with following medical problems: 1. Chest pain, rule out acute coronary syndrome. The patient has a history of coronary artery disea se. She reported that she got a cardiac catheterization done a week or so in [place], it was posi tive, she has follow up with Dr. Lopez before in the hospital. We will put a consult for evaluation given high pretest probability for a stress test. We will defer to Cardiology for further treatment and workup. We will monitor on tele. We will treat accordingly. 2. Uncontrolled diabetes. Patient has hyperglycemia, place the patient on sliding scale. 3. History of gastroesophageal reflux disease. We will reconcile home medications, continue pantopr azole. 4. Diabetic polyneuropathy. Continue Lyrica. 5. History of coronary artery disease, . 6. Deep venous thrombosis prophylaxis.
--- NOTE | 2018-02-18 11:43 | EKG ---
Test Reason : Blood Pressure : / mmHG Vent. Rate : 065 BPM Atrial Rate : 065 BPM P-R Int : 172 ms QRS Dur : 090 ms QT Int : 420 ms P-R-T Axes : -09 -20 071 degrees QTc Int : 436 ms Normal sinus rhythm Voltage criteria for left ventricular hypertrophy Abnormal ECG #1 Confirmed by NITA CASILLAS MD ([id number]), editorial writer ANKIT MENA ([id number]) on 02/18/2018 11:43:30 AM Referred By: Confirmed By:NITA CASILLAS MD
--- NOTE | 2018-02-18 11:44 | EKG ---
Test Reason : Blood Pressure : / mmHG Vent. Rate : 067 BPM Atrial Rate : 067 BPM P-R Int : 174 ms QRS Dur : 092 ms QT Int : 408 ms P-R-T Axes : -10 -16 069 degrees QTc Int : 431 ms Normal sinus rhythm Voltage criteria for left ventricular hypertrophy Cannot rule out Septal infarct , age undetermined Abnormal ECG #2 Confirmed by NITA CASILLAS MD ([id number]), editorial manager ANKIT MENA ([id number]) on 02/18/2018 11:43:40 AM Referred By: SONJA Confirmed By:NITA CASILLAS MD
== END 2018-02-12 17:17 | disposition home or self-care (01) ==
LOC: ERS 18:06 → 2SW 20:20
PROVIDERS: ADMIT Hospitalist; ATTEND Hospitalist
DX: I25.118 Atherosclerotic heart disease of native coronary artery with other forms of angina pectoris (principal); E78.5 Hyperlipidemia, unspecified; M32.9 Systemic lupus erythematosus, unspecified; E11.65 Type 2 diabetes mellitus with hyperglycemia; E11.42 Type 2 diabetes mellitus with diabetic polyneuropathy; K21.9 Gastro-esophageal reflux disease without esophagitis; G43.909 Migraine, unspecified, not intractable, without status migrainosus; I25.2 Old myocardial infarction; I69.151 Hemiplegia and hemiparesis following nontraumatic intracerebral hemorrhage affecting right dominant side; D50.9 Iron deficiency anemia, unspecified; I12.9 Hypertensive chronic kidney disease with stage 1 through stage 4 chronic kidney disease, or unspecified chronic kidney disease; E11.22 Type 2 diabetes mellitus with diabetic chronic kidney disease; N18.9 Chronic kidney disease, unspecified; E66.9 Obesity, unspecified; Z68.33 Body mass index [BMI] 33.0-33.9, adult; Z95.5 Presence of coronary angioplasty implant and graft; Z88.8 Allergy status to other drugs, medicaments and biological substances; Z79.82 Long term (current) use of aspirin; Z79.4 Long term (current) use of insulin; Z79.899 Other long term (current) drug therapy; Z86.718 Personal history of other venous thrombosis and embolism
CPT/HCPCS: 36415; 36416; 71045; 80048; 80053; 82274; 82553; 84484; 85025; 90471; 90686; 93005; G0008; G0378

== ENCOUNTER 2018-04-29 15:08 | Inpatient (IN) | payer MEDICAID, SELFPAY ==
[~2018-04-29 15:08] MED LIST changes: -ISOVUE-370 76%-LOCM 1 ML ONE; +Iopamidol 370 76% 100 ML VIAL ONE
[2018-04-29 15:37] LABS: #Basophils 0.1 thou/uL (0.0-0.2); #Eosinphils 0.2 thou/uL (0.0-0.7); #Lymphocytes 2.1 thou/uL (1.20-3.40); #Monocytes 0.5 thou/uL (0.11-0.59); #Neutrophils 5.9 thou/uL (1.40-6.50); %Basophils 0.6 % (0.0-1.0); %Eosinophils 2.2 % (0.0-10.0); %Monocytes 5.5 % (0.0-10.0); %Neutrophils 67.6 % (42.0-75.0); Hemoglobin 10.8 g/dL (12.0-16.0); Mean Corpuscular HGB CONC 33.2 g/dL (32.0-36.0); Mean Corpuscular Hemoglobin 24.7 pg (27.0-31.0); Mean Corpuscular Volume 74.2 fL (78.0-98.0); Mean Platelet Volume 8.5 fL (7.4-10.4); Platelet Count 236 thou/uL (130-400); Red Blood Cell (RBC) Count 4.37 mill/uL (4.20-5.40); White Blood Cell (WBC) Count 8.8 thou/uL (4.8-10.8)
[2018-04-29 15:44] LABS: Prothrombin Time 13.3 SEC (12.0-14.7)
[2018-04-29 15:50] LABS: Anisocytosis SLIGHT = 6-15 cells (100X) (0-5/hpf); Hypochromia SLIGHT = 6-15 cells (100X) (0-5/hpf); MDiff Complete? YES; Microcytosis SLIGHT = 6-15 cells (100X) (0-5/hpf); Platelet Morphology Comment Appears Adequate; Polychromasia SLIGHT = 2-3 cells (100X) (0-2/hpf)
[2018-04-29 16:25] LABS: ALT (SGPT) 11 U/L (8-55); AST (SGOT) 14 U/L (5-34); Albumin 4.2 g/dL (3.5-5.0); Alkaline Phosphatase 109 U/L (40-150); Anion Gap 16 mmol/L (10-20); BUN (Urea Nitrogen) 16 mg/dL (9.8-20.1); Bilirubin, Total 0.3 mg/dL (0.2-1.2); CK (CPK) 27 U/L (29-168); Calc. Creatinine Clearance 0 mL/min (70-130); Calcium 9.7 mg/dL (7.8-10.44); Carbon Dioxide 20 mmol/L (22-29); Chloride 103 mmol/L (98-107); Estimated GFR-MDRD 50; Globulin 3.8 g/dL (2.4-3.5); Glucose 185 mg/dL (70-105); Potassium 4.4 mmol/L (3.5-5.1); Sodium 135 mmol/L (136-145)
--- NOTE | 2018-04-29 17:04 | CT ---
CT HEAD NONCONTRAST: 04/29/18 HISTORY: Altered mental status. Left extremity weakness. COMPARISON: 08/21/10. FINDINGS: There is no evidence of acute intracranial hemorrhage or infarct. Ventricles appear normal in size, s hape and position. There is no mass effect or shift of midline structures. IMPRESSION: No acute intracranial abnormalities are demonstrated. Findings were called to Inocencia in the Emergency Department to relay to Dr. Palma at 1547 hours. Code CR POS: BST
[2018-04-29] MEDS ORDERED: Senokot S 8.6-50 MG TAB PO PRN (18:01)
[2018-04-29] MEDS ORDERED: HYDROcodone/Acetaminophen 5/325 mg Tablet PO PRN (18:01)
[2018-04-29] MEDS ORDERED: Acetaminophen 325 MG TAB PO PRN (18:01)
--- NOTE | 2018-04-29 18:22 | CT ---
CT ANGIOGRAM OF THE HEAD CT ANGIOGRAM OF THE NECK 04/29/18 HISTORY: Left upper extremity weakness. Left lower extremity weakness. COMPARISON: None. TECHNIQUE: CT angiogram of the head and neck are performed in the axial plane. Three dimensional reformatted cornelia ges are submitted for interpretation. FINDINGS: POSTCONTRAST HEAD CT: There is preservation of cortical de luna-white matter differentiation. Limited evaluation for subarachn oid hemorrhage due to the presence of intra-articular contrast. Calvarium is intact. Adequate aeratio n of the mastoid air cells. There is a mucous retention cyst in the left maxillary sinus. Aerodigestive tract is patent. No mucosal abnormality. Limited evaluation of the oral cavity due to d ental amalgam artifact. Midline fatty raphae of the tongue is preserved. Epiglottis has a normal avinash torsten. Pre-epiglottic fat is preserved. Symmetric attenuation of the sternocleidomastoid muscles. Symmetric attenuation of the parotid and submandibular glands. No evidence of lymphadenopathy by size criteria. Thyroid gland is unremarkable. Upper mediastinum and lung apices do not demonstrate any ac nooksack abnormality. Patchy ground opacities in the lung apices are nonspecific. No lytic or blastic lesions in the osseous structures. No high grade central canal stenosis. Multilev el degenerative changes with loss of disc space height and osteophyte formation is noted. Grossly the central spinal canal and neural foramina are patent. Evaluation is limited due to technique. CT ANGIOGRAM: The aortic arch has appropriate enhancement and luminal diameter. RIGHT CAROTID: The origin of the right carotid artery has appropriate enhancement and luminal diamete r. Mild tortuosity of the proximal right common carotid artery. The right carotid bifurcation and int ernal carotid artery have appropriate enhancement and luminal diameter. No evidence of significant st enosis based upon NASCET criteria. There is mild tortuosity of the mid portion o the right internal c arotid artery. LEFT CAROTID: The left carotid artery origin has appropriate enhancement and luminal diameter. Mild t ortuosity of the proximal left common carotid artery. The left carotid bifurcation and internal carot id have appropriate enhancement and luminal diameter. No significant stenosis based upon NASCET crite mariya. Both subclavian artery are patent. Both vertebral artery origins are patent. Both vertebral arteries are patent throughout their course in the neck. The left vertebral artery is dominant. CT ANGIOGRAM OF THE HEAD: The intracranial internal carotid arteries have symmetric enhancement and luminal diameter. ANTERIOR CIRCULATION: Symmetric enhancement and luminal diameter of the A1 and M1 segments. Symmetric enhancement and lumin al diameter of the proximal A2 segments and proximal MCA branches. POSTERIOR CIRCULATION: Both vertebral arteries supply a normal caliber basilar artery. The left and right P1 segments have a symmetric enhancement and luminal diameter. IMPRESSION: 1. Unremarkable CT angiogram of the [place]. No significant stenosis. 2. Unremarkable CT angiogram of the cervical carotid and cervical vertebral arteries. No signifi cant stenosis based upon NASCET criteria. 3. Results of the study discussed with Dr. Palma, 04/29/18 at 4:09 p.m. Code CR POS: JOSÉ MIGUEL
[2018-04-29 19:20] LABS: Troponin I Less than 0.010 ng/mL (< 0.028)
[2018-04-29] MEDS: Atorvastatin Calcium 40 MG TAB PO SCH (21:01)
[2018-04-29] MEDS: Famotidine 20 MG TAB PO SCH (21:01)
[2018-04-29 22:02] VITALS: BMI 34.8
[2018-04-29 22:06] LABS: Troponin I Less than 0.010 ng/mL (< 0.028)
[2018-04-29] MEDS ORDERED: Methocarbamol 500 MG TAB PO SCH (22:45)
[2018-04-29] MEDS ORDERED: Pregabalin 75 MG CAP PO SCH (22:45)
[2018-04-30 05:27] LABS: Cardiac Risk 6.2 (Less than 4.5); Cholesterol 206 mg/dl (< 200 Desired); HDL Cholesterol 33 mg/dL (>60 Neg Risk); Triglycerides 679 mg/dL (Less than 150)
[2018-04-30] MEDS ORDERED: Dextrose 50% Abboject 50 ML SYRINGE IVP PRN (06:54)
[2018-04-30] MEDS ORDERED: Dextrose 5% in Water 1,000 ML IV PRN (06:54)
[2018-04-30] MEDS ORDERED: HumaLOG 300 UNITS/3 ML VIAL SC PRN (06:54)
[2018-04-30] MEDS: HumaLOG 300 UNITS/3 ML VIAL SC PRN ×3 (07:23→17:54)
[2018-04-30] MEDS: Pregabalin 75 MG CAP PO SCH ×2 (09:00→21:58)
[2018-04-30] MEDS: Methocarbamol 500 MG TAB PO SCH ×3 (09:00→22:26)
[2018-04-30] MEDS ORDERED: Aspirin 81 mg Enteric Coated Tablet PO SCH (09:00)
[2018-04-30] MEDS: Famotidine 20 MG TAB PO SCH ×2 (09:01→21:56)
[2018-04-30] MEDS: Clopidogrel Bisulfate 75 MG TAB PO SCH (09:02)
[2018-04-30 10:41] LABS: Iron Binding Capacity, Total 379 mcg/dL (265-497)
[2018-04-30 10:42] LABS: Iron 28 ug/dL (50-170)
[2018-04-30] MEDS ORDERED: Fenofibrate 48 MG TAB PO SCH (11:00)
--- NOTE | 2018-04-30 12:38 | MRI ---
MRI BRAIN NONCONTRAST: HISTORY: Left-sided weakness. TIA. FINDINGS: There is no evidence of acute intracranial hemorrhage or infarct. Ventricles appear normal in size, shape, and position. There is no mass effect or shift of midline structures. Visualized paranasal sinuses remain well aerated. IMPRESSION: No acute intracranial abnormalities are demonstrated. POS: [facility]
--- NOTE | 2018-04-30 13:22 | HP ---
CHIEF COMPLAINT: Left-sided weakness. HISTORY OF PRESENT ILLNESS: The patient is a very pleasant 53-year-old female with history of diabetes, hypertension, CAD, status post stent last year, and also CVA in the past, who presents to the hospital with complaints of left-sided weakness. The patient stated that on the , she started noticing left upper arm weakness. She was unable to shampoo her hair. This weakness did not start in the morning when she woke up. It gradually kind of started later on in the day. The patient thought that this probably must be just something in relations to her shoulder, so she did not pay much attention to it, went about her days. However, yesterday, she started having significant amount of weakness and heaviness in her left lower extremity. To the point that the patient had to drag her feet and this concerned her, so she came into the hospital for further evaluation. The patient did undergo a CTA and a brain CT. In the ER, the CTA did not indicate any acute abnormalities. The CT head that she had done also did not indicate any acute abnormalities. At this point, the patient was admitted in for further evaluation. PAST MEDICAL HISTORY: This patient has a history of; 1. Diabetes. 2. Hypertension. 3. She has a history of CAD, status post stent last year. 4. CVA in 2008. She had some right-sided weakness. 5. She has had a history of pericarditis and history of DVT. PAST SURGICAL HISTORY: She has had stent x1 placed in, cholecystectomy, tubal ligation. She had a cardiac cath x2. SOCIAL HISTORY: She denies any alcohol use, drug use, or smoking history. She is a full code. Lives with her family. FAMILY HISTORY: Significant for heart disease. Maternal history of diabetes, hyperlipidemia, and hypertension. She told me that her siblings also have significant heart disease. ALLERGIES: ALLERGIC TO METOPROLOL AND TRANSDERMAL NITROGLYCERIN. REVIEW OF SYSTEMS: All negative except for the ones mentioned above in the HPI. PHYSICAL EXAMINATION: VITAL SIGNS: As of the following; temperature of 98.1, pulse 74, respiratory rate 20, O2 saturation 93% on room air, and blood pressure 146/64. GENERAL: She is awake, alert, and oriented x3. Does not appear in distress. Cranial nerves III through XI are intact. HEENT: Normocephalic, atraumatic. NECK: No lymphadenopathy noted. CV: S1 and S2 present. No murmurs, rubs, or gallops. LUNGS: Clear to auscultation. No rhonchi or wheezes noted. ABDOMEN: Soft and nontender. Bowel sounds are present x2. EXTREMITIES: No edema. Pedal pulses are present x2. NEURO: She has significant weakness on the left upper extremity and left lower extremity. She is just maybe able to kind of just move her toes a little bit, maybe sensation below the knee is not intact on her left lower extremity and below her elbow is not intact. Otherwise, she does have sensation above her elbow for her left upper extremity and above the knee from the lower extremity. Cerebellum test is negative. I did not get the patient up since she does have significant left-sided weakness. LABORATORY RESULTS: As of the following; WBCs of 8.8, hemoglobin of 10.8, hematocrit of 32.4, and her MCV is very low at 74. Her chemistries show sodium of 135, potassium of 4.4, BUN of 16, creatinine of 1.14, and glucose of 185. Her troponin x2 were negative. ASSESSMENT AND PLAN: The patient is a very pleasant 53-year-old female, who comes to the hospital with stroke-like symptoms. 1. Stroke. She does have significant left-sided weakness. She is out of the window for any intervention. We will get an MRI of the brain. She recently had an echocardiogram, however, may consider repeating it since her echo ejection fraction was about 40%. Also, she already had a CTA. We will also get Neurology consult. The patient is on 325 of aspirin. We will change that to 81 mg of aspirin and Plavix. The patient stated that she was on Plavix, which was removed a few months ago given the fact that it has been about a year that she had a stent. 2. Diabetes. We will continue her home medication. 3. Coronary artery disease. We will continue her aspirin and Plavix and her other home medications. 4. Hypertension. Again, I will not be very aggressive to lowering her blood pressure, however, I want her blood pressure to keep at least systolic less than 180 and diastolic less than 110. 5. Deep vein thrombosis prophylaxis. We will put the patient on some SCDs and also some Lovenox. Job ID: [id number]
--- NOTE | 2018-04-30 16:04 | HP ---
CHIEF COMPLAINT: Acute stroke. HISTORY OF PRESENT ILLNESS: The patient reports she has preexisting diabetes. She is on insulin plus oral medication. On at 6:00 p.m., she developed left arm numbness and weakness and took ibuprofen and went to bed. Next day when she woke up, she had left leg weakness along with numbness. She also developed double vision with her eyes and dizziness has been present due to anemia. She has had a CVA in the past in 2008, which involved the right side and this is a new finding. The patient has no history of nausea, vomiting, or seizure activity. She can walk. She also felt she has swallowing difficulty. She was trying to eat a banana and it could not go down. PREVIOUS MEDICAL HISTORY: [place] in 2016 with a stent, which is re-occluded. She has lupus pericarditis, reflex sympathetic dystrophy in the left arm following an accident since 2003. She has hypertension, diabetes, elevated cholesterol, and neuropathy. SURGICAL HISTORY: In 2014, she had gallbladder resection. In 1983, tubal ligation. FAMILY HISTORY: Father of coronary artery disease at age of 79. Brother has coronary artery disease and is pending a bypass surgery, he is 70. Another brother who is 60 has a history of stroke. Mother from diabetes complication. 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 PHYSICAL EXAMINATION: Vital signs. Temperature 97.9, pulse 79, and respiratory rate is 20, and blood pressure 158/83. GENERAL APPEARANCE: Slightly obese lady, pleasant. CHEST: Clear vesicular breathing. CARDIOVASCULAR: S1 and S2 heard. No murmurs. ABDOMEN: Soft. NEUROLOGIC: Higher intellectual function. She is oriented to time, place, and person. Cranial nerve examination; her left pupil size is 4, right is 3 and she complained of double vision with her left eye. Motor examination; bulk normal. Tone normal. Strength 5/5 on the right side. In the left upper extremity, she had decreased effort and strength was at 1+. Left lower extremity, 2/5 for plantar flexion, dorsiflexion. Muscle groups tested on deltoid, biceps, triceps, wrist extension, flexion, finger extension and flexion bilaterally. Cerebellar; normal [id number] on the right side. Sensory normal. Decreased sensation throughout on the left side in face, arm and leg distribution. LABORATORY WORKUP: So far, white count 8.8, hemoglobin 10.8, hematocrit 32.4, and platelets 236. Sodium 135, potassium 4.4, chloride 103, bicarb 20, BUN 16, creatinine 1.14, glucose 185, and calcium is 9.7. Coagulation is within normal limits. Her CT angiogram was negative for any stenosis in the intracranial or extracranial arteries and her MRI of the brain, which was performed today showed no acute intracranial abnormality. No acute infarct. Her echocardiogram showed left ventricular size is increased. Ejection fraction is 35% to 40%. The apex of the mid and distal anterior wall is akinetic and left atrium is dilated. IMPRESSION: The patient with generalized weakness on the left side, which is of sudden onset. Her MRI of the brain is negative and CT angiogram was negative. It is unclear what the cause of her left upper extremity and lower extremity weakness is. At this time, she is diffusely weak in the left upper and lower extremity and it is unclear whether she has the cervical radiculopathy or any kind of lesion in the cervical spine. TREATMENT PLAN: I will request an MRI of the C-spine to see if there is a neural foraminal narrowing on the left side. We will request Neurology to follow up tomorrow. Job ID: [id number] [facility]
--- NOTE | 2018-04-30 16:26 | PDOC.PN ---
- Subjective Encounter Start Date: 04/30/18 Encounter Start Time: 10:00 Subjective: pt up in bed upset about an incident that occured with the therapist - Objective Resuscitation Status - Order Detail: 04/29/18 18:01 Resuscitation Status Routine Resuscitation Status: FULL: Full Resuscitation Vital Signs & Weight: Vital Signs (12 hours) Temp Pulse Pulse Resp BP BP Pulse Ox 04/30/18 15:59 98.3 F 78 16 176/74 H 92 L 04/30/18 11:27 97.9 F 79 20 158/83 H 97 04/30/18 11:15 79 142/85 H 04/30/18 08:50 93 L 04/30/18 07:57 98.1 F 74 20 146/64 H 93 L Weight Weight 190 lb 4.8 oz I&O: 04/29/18 04/30/18 05/01/18 06:59 06:59 06:59 Intake Total 680 Balance 680 Result Diagrams: 04/29/18 15:29 04/29/18 15:29 Additional Labs: Accuchecks 04/30/18 04/30/18 04/29/18 10:32 05:51 21:55 POC Glucose 303 H 315 H 171 H Phys Exam - Physical Examination Neck: no nodes, no JVD, supple, full ROM Respiratory: no wheezing, no rales, no rhonchi, wheezing present, clear to auscultation bilateral Cardiovascular: RRR, no significant murmur, no rub, gallop, irregular Gastrointestinal: soft, non-tender, no distention, positive bowel sounds left upper and left lower ext weakness Dx/Plan (1) Stroke Code(s): I63.9 - CEREBRAL INFARCTION, UNSPECIFIED Status: Acute (2) CKD (chronic kidney disease) stage 2, GFR 60-89 ml/min Code(s): N18.2 - CHRONIC KIDNEY DISEASE, STAGE 2 (MILD) Status: Chronic (3) DM type 2 (diabetes mellitus, type 2) Status: Chronic (4) HLD (hyperlipidemia) Code(s): E78.5 - HYPERLIPIDEMIA, UNSPECIFIED Status: Chronic - Plan MRI negative for stroke -: will get MRI cspine since she has some pain to her left cervical area -: will conitnue asa/statin * . Review of Systems - Review of Systems Respiratory: negative: Cough, Dry, Shortness of Breath, Hemoptysis, SOB with Excertion, Pleuritic Pain, Sputum, Wheezing Cardiovascular: negative: chest pain, palpitations, orthopnea, paroxysmal nocturnal dyspnea, edema, light headedness, other Gastrointestinal: negative: Nausea, Vomiting, Abdominal Pain, Diarrhea, Constipation, Melena, Hematochezia, Other Genitourinary: negative: Dysuria, Frequency, Incontinence, Hematuria, Retention , Other - Medications/Allergies Allergies/Adverse Reactions: Allergies Allergy/AdvReac Type Severity Reaction Status Date / Time metoprolol Allergy COUGH Verified 04/29/18 21:59 nitroglycerin Allergy Rash Verified 04/29/18 21:59 [From Nitro-Bid] Medications: Current Medications Acetaminophen (Tylenol) 650 mg PO Q4H PRN PRN Reason: Headache/Fever/Mild Pain (1-3) Last Admin: 04/30/18 15:38 Dose: 650 mg Hydrocodone Bitart/Acetaminophen (Lane 5/325) 1 tab PO Q4H PRN PRN Reason: Moderate Pain (4-6) Aspirin (Ecotrin) 81 mg PO DAILY [facility] Last Admin: 04/30/18 09:02 Dose: 81 mg Atorvastatin Calcium (Lipitor) 40 mg PO HS [facility] Last Admin: 04/29/18 21:01 Dose: 40 mg Clopidogrel Bisulfate (Plavix) 75 mg PO DAILY [facility] Last Admin: 04/30/18 09:02 Dose: 75 mg Dextrose/Water (Dextrose 50%) 25 gm IVP PRN PRN PRN Reason: HYPOGLYCEMIA PROTOCOL Enoxaparin Sodium (Lovenox) 40 mg SC 0900 [facility] Famotidine (Pepcid) 20 mg PO BID [facility] Last Admin: 04/30/18 09:01 Dose: 20 mg Fenofibrate (Tricor) 48 mg PO DAILY [facility] Ferrous Sulfate (Ferrous Sulfulte) 300 mg PO DAILY [facility] Glucagon (Glucagon) 1 mg IM PRN PRN PRN Reason: HYPOGLYCEMIA PROTOCOL Dextrose/Water (D5w) 1,000 mls @ 0 mls/hr IV INF PRN PRN Reason: HYPOGLYCEMIA PROTOCOL Insulin Human Lispro (Humalog) 0 units SC .MILD SLIDING SCALE PRN; Protocol PRN Reason: MILD SLIDING SCALE Last Admin: 04/30/18 11:43 Dose: 5 unit Insulin Human Lispro (Humalog) 0 units SC .BEDTIME SLIDING SC PRN; Protocol PRN Reason: BEDTIME SLIDING SCALE Methocarbamol (Robaxin) 500 mg PO TID [facility] Last Admin: 04/30/18 15:38 Dose: 500 mg Pregabalin (Lyrica) 150 mg PO BID [facility] Last Admin: 04/30/18 09:00 Dose: 150 mg Senna/Docusate Sodium (Senokot S) 2 tab PO BID PRN PRN Reason: Constipation Sodium Chloride (Flush - Normal Saline) 10 ml IVF PRN PRN PRN Reason: Saline Flush Last Admin: 04/30/18 09:00 Dose: 10 ml
[2018-04-30] MEDS ORDERED: Nitroglycerin 0.4 MG TAB (25 Tab Bottle) SL PRN (21:07)
[2018-04-30] MEDS ORDERED: Acetaminophen 325 MG TAB PO PRN (21:07)
[2018-04-30] MEDS ORDERED: Methocarbamol 500 MG TAB PO SCH (21:15)
[2018-04-30] MEDS ORDERED: Atenolol 25 MG TAB PO SCH (21:45)
[2018-04-30] MEDS: Atorvastatin Calcium 40 MG TAB PO SCH (21:57)
[2018-04-30] MEDS ORDERED: Isosorbide Mononitrate 20 MG TAB PO SCH (22:15)
[2018-05-01] MEDS: HumaLOG 300 UNITS/3 ML VIAL SC PRN ×3 (06:28→17:23)
[2018-05-01] MEDS ORDERED: Atenolol 25 MG TAB PO SCH (09:00)
[2018-05-01] MEDS ORDERED: Enoxaparin Sodium 40 MG/0.4 ML SYRINGE SC SCH (09:00)
[2018-05-01] MEDS ORDERED: Isosorbide Mononitrate 20 MG TAB PO SCH (09:00)
[2018-05-01] MEDS ORDERED: Fenofibrate 48 MG TAB PO SCH (09:00)
[2018-05-01] MEDS ORDERED: Atorvastatin Calcium 10 MG TAB PO SCH (09:00)
[2018-05-01] MEDS ORDERED: Pregabalin 75 MG CAP PO SCH (09:00)
[2018-05-01] MEDS ORDERED: Aspirin 325 mg Enteric Coated Tablet PO SCH (09:00)
[2018-05-01] MEDS ORDERED: Non-Formulary Item 1 EACH (Insulin Aspart [Novolog] 15 UNIT) SQ SCH (09:00)
[2018-05-01] MEDS: Methocarbamol 500 MG TAB PO SCH ×2 (09:41→15:45)
[2018-05-01] MEDS: Famotidine 20 MG TAB PO SCH (09:42)
[2018-05-01] MEDS: Pregabalin 75 MG CAP PO SCH (09:42)
[2018-05-01] MEDS: Clopidogrel Bisulfate 75 MG TAB PO SCH (09:42)
[2018-05-01] MEDS: HumaLOG 300 UNITS/3 ML VIAL SC SCH ×2 (10:04→15:45)
[2018-05-01] MEDS ORDERED: traMADol HCl 50 MG TAB PO PRN (11:44)
[2018-05-01 12:51] LABS: Anion Gap 13 mmol/L (10-20); BUN (Urea Nitrogen) 16 mg/dL (9.8-20.1); Calc. Creatinine Clearance 117 mL/min (70-130); Calcium 9.9 mg/dL (7.8-10.44); Carbon Dioxide 26 mmol/L (22-29); Chloride 100 mmol/L (98-107); Estimated GFR-MDRD 80; Glucose 245 mg/dL (70-105); Sodium 135 mmol/L (136-145)
--- NOTE | 2018-05-01 16:06 | MRI ---
NONCONTRAST MRI CERVICAL SPINE: 05/01/2018 HISTORY: Left arm and leg weakness. FINDINGS: The visualized base of the brain demonstrates a normal MRI appearance. There is mucosal thickening p resent within the left maxillary antrum. The cervicomedullary junction demonstrates a normal appearance. Normal signal intensity is demonstra mayda in the bone marrow. C2-C3: There is no disk bulge or disk herniation. The central spinal canal and neural foramina are patent. C3-C4: There is no disk bulge or disk herniation. The central spinal canal and neural foramina are patent. C4-C5: There is a mild disk osteophyte complex, which effaces the ventral subarachnoid space. There is very slight effacement of the ventral aspect of the spinal cord. There is normal signal intensit y in the spinal cord. The neural foramina are widely patent. C5-C6: There is a mild disk osteophyte complex, which again mildly effaces the ventral subarachnoid space, with slight flattening of the anterior aspect of the spinal cord. There is normal signal inte nsity in the spinal cord. The neural foramina are widely patent. C6-C7: There is a mild broad-based disk osteophyte complex with only slight effacement of the ventra l subarachnoid space. There is no significant narrowing of the central spinal canal. The neural for blanche are parent. C7-T1: There is no disk bulge or disk herniation. Central spinal canal and neural foramina are crespo nt. There is straightening of the normal cervical lordotic curvature, which may be related to muscle spas m or positioning. There is no abnormal signal intensity seen on the fluid sensitive sequences obtained through the cerv ical spine. IMPRESSION: Mild disk degenerative changes in the cervical spine; however, there is no significant narrowing of t he central spinal canal or neural foramina at any level. POS: ANNMARIE
[2018-05-01 16:11] VITALS: BP 150/79; TEMP 98.7
[2018-05-01] MEDS ORDERED: glipiZIDE 5 MG TAB PO SCH (21:00)
[2018-05-02] MEDS ORDERED: Lisinopril 2.5 MG TAB PO SCH (09:00)
[2018-05-02] MEDS ORDERED: Lisinopril 5 MG TAB PO SCH (09:00)
--- NOTE | 2018-05-02 14:01 | DIS ---
DATE OF ADMISSION: 04/29/2018 DATE OF DISCHARGE: 05/01/2018 DISCHARGE DIAGNOSES: 1. Left-sided upper extremity weakness, possible transient ischemic attack, possible stroke. 2. Hypertension. 3. Diabetes. HOSPITAL COURSE: The patient is a 53-year-old female who initially presented to the hospital on 04/29 with left-sided upper extremity weakness followed by left-sided lower extremity weakness. The patient, initially when she came into the ER, she was out of the window for any further intervention. At this time, a CT of brain was negative; CTA done indicated no stenosis, was significantly unremarkable. At this time, the patient was admitted to the hospital. She underwent a stroke workup. Also, Neurology was consulted. Her echocardiogram; her EF was mildly depressed from her previous one, however, otherwise was essentially the same. She did have a brain MRI, which was normal, did not indicate any acute abnormalities. She was seen by Neurology and recommended a cervical spine MRI given some pain that she had on her left shoulder area. The cervical spine MRI indicated just mild distant degenerative changes in the cervical spine. There was no significant narrowing of the central spinal canal or neural foramen at any level. At this time, the patient was discharged home. She also stated that she had significant spasm last night and was able to move her left foot without any problems. The patient stated that she actually walked 250 feet with Physical Therapy who has discharged her without any further workup from a therapist point of view. The patient's home medications will be as of the followin. Atorvastatin 10 mg daily. 2. Nexium 40 mg b.i.d. 3. Atenolol 25 mg b.i.d. 4. Tricor 48 mg daily. 5. Ferrous sulfate 324 daily. 6. NovoLog 15 units t.i.d. 7. Isosorbide 20 mg b.i.d. 8. Lisinopril 5 mg daily. 9. Robaxin 500 mg t.i.d. 10. Lyrica 150 mg b.i.d. 11. Glipizide 5 mg b.i.d. 12. Glucophage 500 mg b.i.d. 13. Aspirin 325 mg daily. PHYSICAL EXAMINATION: VITAL SIGNS: Temperature 98.7, pulse rate 72, respirations are 18, and 93% on room air, blood pressure 150/79. GENERAL: She is awake, alert, and oriented x3. Does not appear to be in distress. CV: S1 and S2 present. No murmurs, rubs, or gallops. ABDOMEN: Soft and nontender. Bowel sounds are present x2. EXTREMITIES: No edema. Pedal pulses are present x2. NEUROLOGICAL: She does have some mild weakness on her left upper extremity; however, she is able to move her left lower extremity without any difficulty. Job ID: [id number]
[2018-05-03 14:35] LABS: ANA Symphony (Qualitative) Negative (Negative); ANA Symphony (Quantitative) 0.1 Ratio (< 0.7 Negative); dsDNA IgG Antibody 0.9 IU/mL (<10 Negative)
--- NOTE | 2018-05-05 10:09 | PQF ---
[facility] Physician Query Form Zita Matos CAROLE HUERTA [id number] [facility] [place]-203 [id number] CLINICAL DOCUMENTATION CLARIFICATION FORM: POST DISCHARGE Addendum to original discharge summary date: ____ Late entry note date: __ DATE: 05/05/18 ATTN: Carole Huerta Please exercise your independent, professional judgment in responding to the clarification form. Clinical indicators are provided on the bottom of this form for your review Please check appropriate box(s): [ ] Cerebral Infarction: [ ] Cerebral [ ] Pre-Cerebral [ ] Thrombosis [ ] Embolism [ ] Unspecified occlusion or stenosis [ ] Venous Thrombosis [ ] Other Cerebral Infarction Laterality: [ ] Right [ ] Left [ ] Bilateral [ ] Pre-Cerebral Artery: [ ] Vertebral [ ] Carotid [ ] Other Pre-Cerebral Artery [ ] Cerebral Artery: [ ] Middle [ ] Anterior [ ] Posterior [ ] Cerebellar [ ] Other Cerebral Artery [ ] Unspecified Cerebral Artery [ ] Hemorrhage (non-traumatic): Please specify Artery: [ ] Subarachnoid [ ] Intracerebral [ ] Extradural [ ] Subdural: [ ] Acute [ ] Subacute [ ] Chronic [ ] Cerebral artery occlusion without infarction [ ] TIA [ ] Other diagnosis [ ] Unable to determine In addition, please specify: Present on Admission (POA): [ ] Yes [ ] No [ ] Unable to determine For continuity of documentation, please document condition throughout progress notes and discharge summary. Thank You. CLINICAL INDICATORS - SIGNS / SYMPTOMS / LABS "left-sided upper extremity weakness" 05/01/18 Discharge Summary "left-sided lower extremity weakness" 05/01/18 Dischrage Summary "left arm numbness" 04/30/18 H&P RISKS: "hypertension" 04/30/18 H&P TREATMENTS: "Neuro consult" 04/30/18 H&P (This form is maintained as a part of the permanent medical record) 2014 [employer]. All Rights Reserved Nader [email or web address] [phone] Page 2 of 2 Note to Provider: In responding to this query, you must exercise independent clinical judgment. The fact that a query is placed does not imply that any particular answer is desired or expected. Please document your response/ clarification to this query in the patients medical record. Your response should clarify and resolve conflicting, ambiguous, or incomplete information in the health record regarding any significant reportable condition or procedure. ( 2008 [facility] Practice Brief, pg. 5) [employer] does not endorse or approve queries developed by the hospital or its agents and issued through the [employer] software that are not in accordance with the rules or regulations promulgated by the Centers for Medicare and Medicaid (CMS), Office of Paving Supervisor (OIG), or US Department of Health and Human Services and [facility] 2008 Practice Brief Managing an Effective Query Process or its updates (Practice Brief). FELIX
--- NOTE | 2018-05-13 19:10 | EKG ---
Test Reason : Blood Pressure : / mmHG Vent. Rate : 069 BPM Atrial Rate : 069 BPM P-R Int : 176 ms QRS Dur : 090 ms QT Int : 406 ms P-R-T Axes : -09 -18 079 degrees QTc Int : 435 ms Normal sinus rhythm Voltage criteria for left ventricular hypertrophy Cannot rule out Septal infarct , age undetermined Abnormal ECG Confirmed by CADY COLORADO ([id number]), slot editor MEKHI BOO ([id number]) on 05/13/2018 7:10:03 PM Referred By: Confirmed By:CADY COLORADO
== END 2018-05-01 19:10 | disposition home or self-care (01) | DRG 57 ==
LOC: ERS 15:08 → 2SE 18:45
PROVIDERS: ADMIT Internal Medicine; ATTEND Internal Medicine
DX: G81.94 Hemiplegia, unspecified affecting left nondominant side (principal); I12.9 Hypertensive chronic kidney disease with stage 1 through stage 4 chronic kidney disease, or unspecified chronic kidney disease; E11.22 Type 2 diabetes mellitus with diabetic chronic kidney disease; N18.2 Chronic kidney disease, stage 2 (mild); E78.5 Hyperlipidemia, unspecified; Z79.84 Long term (current) use of oral hypoglycemic drugs; Z79.4 Long term (current) use of insulin; I25.2 Old myocardial infarction; Z95.5 Presence of coronary angioplasty implant and graft; E11.40 Type 2 diabetes mellitus with diabetic neuropathy, unspecified; Z82.49 Family history of ischemic heart disease and other diseases of the circulatory system; Z83.3 Family history of diabetes mellitus; Z82.3 Family history of stroke; I25.10 Atherosclerotic heart disease of native coronary artery without angina pectoris; Z86.718 Personal history of other venous thrombosis and embolism; M50.30 Other cervical disc degeneration, unspecified cervical region
CPT/HCPCS: 36415; 36416; 70450; 70496; 70498; 70551; 72141; 80048; 80053; 80061; 82550; 83540; 83550; 84484; 85025; 85610; 85730; 86038; 86225; 93005; 93306; G8978-GP-CM; G8979-GP-CK; G8987-GO-CK; G8988-GO-CJ; G8996-GN-CI; G8997-GN-CH; J1650

== ENCOUNTER 2018-11-03 21:51 | Observation (INO) | payer OTHER, SELFPAY ==
[~2018-11-03 21:51] MED LIST changes: +ISOVUE-370 76%-LOCM 1 ML ONE; -Iopamidol 370 76% 100 ML VIAL ONE
--- NOTE | 2018-11-03 22:13 | CT ---
Exam: Head CT without contrast HISTORY: Left-sided weakness, x4 to 6 hours COMPARISON: 04/29/2018 FINDINGS: Hemorrhage: No intraparenchymal hemorrhage or extra-axial hematoma. Brain parenchyma: Cortical de luna-white matter differentiation is preserved. No mass effect or midline shift. Basilar cisterns are patent. Ventricular system: Ventricles and sulci are patent and symmetric. Calvarium: Intact. Sinuses and mastoid air cells: Adequate aeration. IMPRESSION: No acute intracranial process. Results of study discussed with Dr. Olivier 11/03/2018 at 10:10 PM Code CR
[2018-11-03 22:15] LABS: #Basophils 0.1 thou/uL (0.0-0.2); #Eosinphils 0.4 thou/uL (0.0-0.7); #Lymphocytes 1.9 thou/uL (1.20-3.40); #Monocytes 0.5 thou/uL (0.11-0.59); #Neutrophils 4.7 thou/uL (1.40-6.50); %Basophils 0.7 % (0.0-1.0); %Lymphocytes 25.7 % (21.0-51.0); %Neutrophils 62.7 % (42.0-75.0); Hemoglobin 13.2 g/dL (12.0-16.0); Mean Corpuscular HGB CONC 34.3 g/dL (32.0-36.0); Mean Corpuscular Hemoglobin 29.6 pg (27.0-31.0); Mean Corpuscular Volume 86.3 fL (78.0-98.0); Mean Platelet Volume 8.2 fL (7.4-10.4); Platelet Count 204 thou/uL (130-400); RBC Distribution Width 13.3 % (11.5-14.5); Red Blood Cell (RBC) Count 4.45 mill/uL (4.20-5.40); White Blood Cell (WBC) Count 7.5 thou/uL (4.8-10.8)
[2018-11-03 22:22] LABS: PTT 29.3 SEC (22.9-36.1); Prothrombin Time 12.9 SEC (12.0-14.7)
[2018-11-03 22:29] LABS: ALT (SGPT) 12 U/L (8-55); AST (SGOT) 9 U/L (5-34); Albumin 4.3 g/dL (3.5-5.0); Alkaline Phosphatase 100 U/L (40-150); Anion Gap 14 mmol/L (10-20); BUN (Urea Nitrogen) 22 mg/dL (9.8-20.1); Bilirubin, Total 0.3 mg/dL (0.2-1.2); CK (CPK) 36 U/L (29-168); Calc. Creatinine Clearance 0 mL/min (70-130); Calcium 9.4 mg/dL (7.8-10.44); Carbon Dioxide 26 mmol/L (22-29); Chloride 97 mmol/L (98-107); Estimated GFR-MDRD 50; Globulin 3.5 g/dL (2.4-3.5); Glucose 212 mg/dL (70-105); Potassium 3.9 mmol/L (3.5-5.1); Protein, Total 7.8 g/dL (6.0-8.3); Sodium 133 mmol/L (136-145)
--- NOTE | 2018-11-03 22:36 | CT ---
Exam: CT angiogram of the thoracic aorta CT angiogram of the abdominal aorta HISTORY: Chest pain. Left-sided chest pain. Comparison none TECHNIQUE: CT angiogram of the thoracic and abdominal aorta performed in the axial plane. Three-dimen sional reformatted images are submitted for dictation. FINDINGS: Chest CT: Enlarged cardiac silhouette. No significant pericardial fluid. No mediastinal mass, lymphadenopathy or hematoma. Trachea and central bronchi are patent. Patchy groundglass opacities likely due to edema or infiltrat e. No masses or consolidation. No pleural effusion or pneumothorax. Abdomen CT: Hypoattenuation of the liver likely due to hepatic steatosis. Appropriate arterial phase enhancement of the spleen, pancreas and adrenal glands Symmetric enhancement kidneys. Bilaterally no obstructive uropathy Gallbladder is surgically absent. No mesenteric mass, lymphadenopathy, free air or fluid. Ventral abdominal wall hernia containing mesenteric fat. Limited evaluation of the alimentary canal by the lack of contrast. No evidence of bowel obstruction. There are no lytic or blastic lesions in the osseous structures CT ANGIOGRAM: There is appropriate enhancement and luminal diameter of the root of the aorta, ascending thoracic ao rta, aortic arch, descending thoracic aorta, abdominal aorta and aortic bifurcation. Visualized iliac arteries are unremarkable. The superior mesenteric artery origin, inferior mesenteric artery or igin, bilateral renal artery ostia in the celiac artery origin of appropriate enhancement and luminal diameter. Visualized pulmonary arteries are patent. No evidence of pulmonary artery embolism to the level of the segmental arteries. IMPRESSION: No evidence of aneurysm or dissection. Transcribed Date/Time: 11/03/2018 10:45 PM
[2018-11-03] MEDS ORDERED: Acetaminophen 500 MG TAB ONE (23:34)
[2018-11-04 00:52] LABS: Troponin I Less than 0.010 ng/mL (< 0.028)
[2018-11-04 03:06] VITALS: BMI 35.0
[2018-11-04] MEDS ORDERED: Ibuprofen 200 MG TAB PO SCH (04:15)
[2018-11-04 05:06] LABS: Troponin I Less than 0.010 ng/mL (< 0.028)
[2018-11-04] MEDS ORDERED: Acetaminophen 325 MG TAB PO PRN (05:55)
[2018-11-04] MEDS ORDERED: Ondansetron PF 4 MG/2 ML Vial IVP PRN (05:55)
[2018-11-04] MEDS ORDERED: Acetaminophen 650 MG Suppository PR PRN (05:55)
[2018-11-04] MEDS ORDERED: Ondansetron ODT 4 MG TAB PO PRN (05:55)
[2018-11-04] MEDS ORDERED: Dextrose 50% Abboject 50 ML SYRINGE SLOW IVP PRN (06:10)
[2018-11-04] MEDS ORDERED: Dextrose 5% in Water 1,000 ML IV PRN (06:10)
[2018-11-04] MEDS ORDERED: Nitroglycerin 0.4 MG TAB (25 Tab Bottle) SL PRN (06:10)
[2018-11-04] MEDS ORDERED: HumaLOG 300 UNITS/3 ML VIAL SC PRN (06:10)
[2018-11-04] MEDS ORDERED: RIBOFLAVIN 100 MG PO SCH (09:00)
[2018-11-04] MEDS ORDERED: ADENOSINE 60 MG/20 ML VIAL ONE (09:09)
[2018-11-04] MEDS: DULoxetine 60 MG CAP PO SCH (09:46)
[2018-11-04] MEDS: Terbinafine 250 MG TAB PO SCH (09:46)
[2018-11-04] MEDS: Methocarbamol 500 MG TAB PO SCH ×3 (09:46→20:40)
[2018-11-04] MEDS: Pregabalin 75 MG CAP PO SCH ×2 (09:48→20:40)
[2018-11-04] MEDS: Lisinopril 20 MG TAB PO SCH (09:48)
[2018-11-04] MEDS: Fenofibrate 48 MG TAB PO SCH (09:49)
[2018-11-04] MEDS: Aspirin 325 mg Enteric Coated Tablet PO SCH (09:49)
[2018-11-04] MEDS: Magnesium Oxide 400 MG TAB PO SCH (09:49)
[2018-11-04] MEDS: HumaLOG 300 UNITS/3 ML VIAL SC SCH ×3 (09:49→18:09)
[2018-11-04] MEDS: Isosorbide Dinitrate 20 MG TAB PO SCH ×2 (09:49→20:40)
--- NOTE | 2018-11-04 15:51 | NM ---
NUCLEAR MEDICINE CARDIAC MYOCARDIAL PERFUSION SPECT EJECTION FRACTION STUDY WALL MOTION CINE: DATE: 11/04/2018 HISTORY: 53-year-old female with history of prior myocardial infarction and family history of coronary artery disease presents with acute chest pain. TECHNIQUE: Number of days: 1 Rest study: Technetium 99m-sestamibi (Cardiolite) dose: 10.9 mCi Pharmacologic stress: Adenosine dose: 48.2 mg Stress study: Technetium 99m-sestamibi (Cardiolite) dose: 29.5 mCi FINDINGS: CARDIAC (MYOCARDIAL PERFUSION) SPECT There is a fixed myocardial perfusion defect at the anteroseptal wall representing an infarction/scar . Around the margins of this, there is a small region of reversible perfusion defect. EJECTION FRACTION STUDY Left ventricular EF = 47 % WALL MOTION CINE Septal hypokinesis. IMPRESSION: 1) infarction/scar at anteroseptal region. 2) evidence for iron-infarct reversible ischemia around that scar.
--- NOTE | 2018-11-04 17:31 | CON ---
DATE OF CONSULTATION: HISTORY OF PRESENT ILLNESS: The patient is a 53-year-old woman with a history of coronary artery disease and cerebrovascular accident, who presented with pain in her left leg and chest discomfort. The patient has previously undergone PTCA and stent placed into the LAD. The patient has been on medical therapy. She also has a history of cerebrovascular accident. The patient presented with pain in her left leg and some numbness in her left hand. The patient also reporting have midsternal chest discomfort. She also reports having chest pain that lasts several seconds and she used nitroglycerin with resolution of her pain. The patient reports she continues to have some discomfort whenever she sits up. PAST MEDICAL HISTORY: 1. Coronary artery disease. 2. Hypertension. 3. Diabetes mellitus. 4. CVA. 5. Lupus. 6. Hypertension. 7. Dyslipidemia. PAST SURGICAL HISTORY: She has had a cholecystectomy. SOCIAL HISTORY: Nonsmoker. ALLERGIES: Nitro REVIEW OF SYSTEMS: Ten-point system otherwise unremarkable. PHYSICAL EXAMINATION: GENERAL: Obese woman, in mild distress. VITAL SIGNS: Blood pressure of 141/74. NECK: Showed no jugular venous distention. LUNGS: Clear to auscultation. HEART: Regular rate and rhythm. Normal S1, S2. No murmurs. ABDOMEN: Distended. EXTREMITIES: Show no edema. VASCULAR: Radial pulses are 2+. LABORATORY DATA: Sodium 133, potassium 3.9, chloride 97, bicarb 26, BUN 22, and creatinine 1.14. Troponin is less than 0.01. White blood cell count 7.5, hemoglobin 13.2, hematocrit 38.4, platelets of 204. Her EKG revealed her to have normal sinus rhythm with a left ventricular hypertrophy, nonspecific T-wave abnormality. IMPRESSION: 1. Chest pain, possibly due to ischemic heart disease. 2. History of coronary artery disease, status post percutaneous transluminal coronary angioplasty and stent placement. 3. Possible transient ischemic attack. 4. Diabetes mellitus. 5. Hypertension. 6. History of cerebrovascular accidents. 7. Depression. PLAN: This patient presents with chest discomfort. Her EKG shows no acute ST- T wave abnormalities. It is difficult to get a clesrhistory. The patient's troponin levels are unremarkable. Recommend stress testing for risk factor to see if there is evidence of significant ischemia. We will follow this patient with you through her hospitalization. Job ID: [id number] [facility]
--- NOTE | 2018-11-04 19:43 | PRG ---
DATE OF SERVICE: 11/04/2018 SUBJECTIVE: Ms. Matos is a very pleasant 53-year-old female with past medical history significant for prior CVA, hypertension, ischemic cardiomyopathy, and DE in 2017, status post stenting, who presented to the hospital with complaints of chest pain, jaw pain, and left upper and lower extremity weakness. The patient underwent stress test today, which revealed no new areas of infarct. She states that her left upper and lower extremity weakness is back at baseline. Initially, tPA was considered in the ED; however, the patient's symptoms did resolve. She has had no further chest pain or shortness of breath. Denies any nausea or vomiting. OBJECTIVE: VITAL SIGNS: Blood pressure 145/67, pulse 64, O2 saturation is 96% on room air, respirations are 18, and temperature 98.1. GENERAL: The patient is a moderately obese female, resting comfortably in no acute distress. HEENT: Head is atraumatic and normocephalic. Mucous membranes are moist. NECK: Supple. No lymphadenopathy. No carotid bruits. CV: S1 and S2. Regular rate and rhythm. No appreciable murmurs, rubs, or gallops. LUNGS: Regular respiratory rate and pattern, overall clear to auscultation bilaterally. ABDOMEN: Positive bowel sounds. Soft, nontender. EXTREMITIES: No edema. SKIN: Warm and dry. NEUROLOGIC: Cranial nerves 2 through 12 are grossly intact. She has 3/5 weakness on the left upper and left lower extremity. NIH score was 5. LABORATORY DATA: No new laboratory data. ASSESSMENT: 1. Chest pain, consistent with angina, acute coronary syndrome ruled out, resolved, MPI negative for new area of infarct. 2. Left upper and left lower extremity weakness, suspicious for transient ischemic attack and the patient with numerous risk factors. 3. Ischemic cardiomyopathy, ejection fraction 35% to 40%. 4. Coronary artery disease, status post previous myocardial infarction and stenting. 5. Prior cerebrovascular accident in 2008 with some residual deficits. PLAN: I have discussed this patient at length with Dr. Cuello. The patient did have a negative stroke workup in April 2018, but given risk factors and presenting symptoms, we will obtain Neurology input at this time. The patient is on aspirin and statin, but at this point, it might be deemed necessary to have dual antiplatelet agent on board. I will defer the ordering of MRI to Neurology if they deem appropriate. We will continue aspirin and statin. Further recommendations based on hospital course and Neurology recommendations. We will continue close telemetry monitoring. The patient has had no documented atrial fibrillation that I can find. Job ID: [id number]
[2018-11-04] MEDS ORDERED: Melatonin 3 MG TAB PO SCH (21:00)
[2018-11-04] MEDS ORDERED: Atorvastatin Calcium 10 MG TAB PO SCH (21:00)
[2018-11-05 05:16] LABS: #Eosinphils 0.4 thou/uL (0.0-0.7); #Lymphocytes 1.7 thou/uL (1.20-3.40); #Monocytes 0.5 thou/uL (0.11-0.59); #Neutrophils 4.1 thou/uL (1.40-6.50); %Basophils 0.2 % (0.0-1.0); %Eosinophils 5.8 % (0.0-10.0); Hemoglobin 12.3 g/dL (12.0-16.0); Mean Corpuscular HGB CONC 34.2 g/dL (32.0-36.0); Mean Corpuscular Hemoglobin 29.9 pg (27.0-31.0); Mean Corpuscular Volume 87.3 fL (78.0-98.0); Mean Platelet Volume 8.5 fL (7.4-10.4); Platelet Count 190 thou/uL (130-400); RBC Distribution Width 13.3 % (11.5-14.5); Red Blood Cell (RBC) Count 4.11 mill/uL (4.20-5.40); White Blood Cell (WBC) Count 6.7 thou/uL (4.8-10.8)
[2018-11-05 05:30] LABS: Anion Gap 12 mmol/L (10-20); BUN (Urea Nitrogen) 13 mg/dL (9.8-20.1); Calc. Creatinine Clearance 105 mL/min (70-130); Calcium 9.3 mg/dL (7.8-10.44); Carbon Dioxide 26 mmol/L (22-29); Chloride 100 mmol/L (98-107); Estimated GFR-MDRD 70; Glucose 237 mg/dL (70-105); Potassium 3.9 mmol/L (3.5-5.1); Sodium 134 mmol/L (136-145)
[2018-11-05] MEDS: HumaLOG 300 UNITS/3 ML VIAL SC SCH ×2 (08:55→11:40)
[2018-11-05] MEDS: DULoxetine 60 MG CAP PO SCH (08:57)
[2018-11-05] MEDS: Fenofibrate 48 MG TAB PO SCH (08:57)
[2018-11-05] MEDS: Aspirin 325 mg Enteric Coated Tablet PO SCH (08:57)
[2018-11-05] MEDS: Isosorbide Dinitrate 20 MG TAB PO SCH (08:57)
[2018-11-05] MEDS: Lisinopril 20 MG TAB PO SCH (08:58)
[2018-11-05] MEDS: Methocarbamol 500 MG TAB PO SCH ×2 (08:58→14:45)
[2018-11-05] MEDS: Magnesium Oxide 400 MG TAB PO SCH (08:58)
[2018-11-05] MEDS: Pregabalin 75 MG CAP PO SCH (08:59)
[2018-11-05] MEDS: Terbinafine 250 MG TAB PO SCH (09:00)
--- NOTE | 2018-11-05 10:45 | MRI ---
MRI BRAIN NONCONTRAST: DATE: 11/05/2018 HISTORY: 53-year-old female with acute stroke symptoms: Left-sided weakness and facial droop. FINDINGS: The ventricles are normal in size and configuration. There is no major intra-axial signal abnormality , restricted diffusion, midline shift or any other mass effect, recent intra-axial hemorrhage, or extra-axial fluid collection. IMPRESSION: Normal
--- NOTE | 2018-11-05 11:40 | CON ---
DATE OF CONSULTATION: 11/05/2018 CHIEF COMPLAINT: Weakness. HISTORY OF PRESENT ILLNESS: The patient gave us medical history. She is a 53-year-old right-handed lady, who was living at home with her family. She reports 2 weeks ago on Tuesday, she started to have pressure in her chest. Her jaw felt weird. She also noticed left side was weak and she is better now. She has very little numbness on the left side. She had the same issue in April and she saw a neurologist and was diagnosed as having arthritis and prescribed Cymbalta. There is no difficulty with her speech. She also complains of right face drooping. PAST MEDICAL HISTORY: Positive for diabetes. She is on medications for her diabetes. She is also on insulin. She has lupus, hypercholesterolemia, coronary artery disease, status post PTCA with a stent. PAST SURGICAL HISTORY: Cholecystectomy in 2015, and in 2003, she had a tendon repair of the left hand, and subsequently, developed reflex sympathetic dystrophy in the left hand. She also had tubal ligation. SOCIAL HISTORY: Nonsmoker. No alcohol. Lives with her family and her daughter's family moved in since her is away a lot and the daughter's family looks after her. ALLERGIES: SHE IS ALLERGIC TO NITROGLYCERIN, WHICH CAUSES A RASH WHEN APPLIED TOPICALLY, BUT SHE TAKES SUBLINGUAL NITROGLYCERIN NEEDED. FAMILY HISTORY: There are 9 siblings, 6 girls and 3 boys. One brother of diabetes at 58. Mother from diabetes, coronary artery disease, and myeloma at 69. Father of cancer and heart problems, he was 72. REVIEW OF SYSTEMS: PULMONARY: Negative for shortness of breath. CARDIAC: Positive for chest pain. GENITOURINARY: Negative for bladder problems. GASTROINTESTINAL: Negative for nausea, vomiting, or diarrhea. NEUROLOGICAL: Positive for left-sided weakness and numbness. ENT: Normal. OPHTHALMOLOGIC: Normal. NEUROLOGICAL: Positive for weakness and numbness. LABORATORY WORKUP: White count 6.7, hemoglobin 12.3, hematocrit 35.9, platelets 190. Chemistry; sodium 134, potassium 3.9, chloride 100, BUN 13, creatinine 0.85, glucose 237. IMAGING STUDIES: Her CT of the head was negative for an acute event at this time and no intracranial process. PHYSICAL EXAMINATION: VITAL SIGNS: Temperature 98.2, pulse 64, blood pressure 134/61, respiratory rate 16. CHEST: Clear vesicular breathing. CARDIOVASCULAR: S1 and S2 heard No murmurs. ABDOMEN: Soft. NEUROLOGICAL: Higher intellectual functions, normal orientation to time, place, and person. Appropriate conversation. Cranial nerves, 2 through 12. Pupils are 2 mm and reactive. Normal extraocular movements. She has facial asymmetry on the right side. Normal hearing bilaterally. Tongue midline. No atrophy noted. Normal elevation of palate. Motor, bulk normal, tone normal. Strength 5/5 on the right side. In the left arm, her strength is 4/5. Left leg, her strength is 3/5. Muscle groups tested are iliopsoas, hamstrings, quadriceps, ankle dorsiflexion, plantar flexion, deltoid, biceps, triceps, wrist extension and flexion, finger extension and flexion bilaterally. Cerebellar unable to perform on the left side due to weakness, but normal on the right side. Deep tendon reflexes 2+ throughout. Sensory, decreased on the left side. IMPRESSION: The patient is a 53-year-old lady, who reports 2-week history of some cardiac issues such as chest pressure and also left-sided weakness. She had a similar event with left-sided weakness in April, but she did not tell me that she had persistent weakness. She reported to the nurse that she had old weakness, which is getting better. However, due to conflicting medical history, I am unable to determine specific timing other than the patient's version, which is 2-week history of weakness. At this time, suspicion is high for possible acute stroke. RECOMMENDATIONS: Please obtain an MRI of the brain, and if MRI is positive, please call Neurology for continued followup from tomorrow. Job ID: [id number]
--- NOTE | 2018-11-05 12:58 | STRESS ---
Acquisition Time: 2018-11-04 13:21:11 Total Exercise Time: 00:04:00 Test Indications: CHEST PAIN Medications: Protocol: ADENOSINE Max HR: 085 BPM 50% of Pred: 167 BPM Max BP: 142/082 mmHG Max Work Load: 1.0 METS THE PATIENT WAS INJECTED WITH ADENOSINE. SHE DID DEVELOP CHEST PAIN. THERE WAS NO SIGNIFICANT ST SEGMENT DEPRESSION. AWAIT NUCLEAR IMAGES FOR DEFINITIVE DIAGNOSIS. Confirmed by ASHLEE OCONNOR ([id number]), editor in chief KATHARINA NATARAJAN ([id number]) on 11/05/2018 12:57:56 PM Referred By: MD OCONNOR Confirmed By:ASHLEE OCONNOR
[2018-11-05 16:02] VITALS: BP 133/67; TEMP 98.2
--- NOTE | 2018-11-06 00:53 | DIS ---
DATE OF ADMISSION: 11/03/2018 DATE OF DISCHARGE: 11/05/2018 CHIEF COMPLAINT ON ADMISSION: Chest pain, jaw pain, left upper and left lower extremity weakness. DISCHARGE DIAGNOSES: 1. Chest pain consistent with angina, resolved, acute coronary syndrome ruled out, MPI negative for new area of infarct. 2. Left upper and left lower extremity weakness, now back at baseline, questionable transient ischemic attack, MRI negative. 3. Ischemic cardiomyopathy, ejection fraction 35% to 40%. 4. Coronary artery disease, status post previous myocardial infarction and stenting. 5. Previous cerebrovascular accident in 2008 with some residual deficits. CONSULTANTS: 1. Dr. Cline, Neurology. 2. Dr. Stevens of Cardiology. BRIEF HOSPITAL COURSE: The patient is a pleasant 53-year-old female, who presented to the hospital with the admitting complaints. She was admitted for ACS rule out, as well as stroke rule out. The patient's presenting symptoms are confounded by the fact that she has some residual left upper and left lower extremity weakness and deficits secondary to a previous CVA per the patient. In any case, tPA was not given. Her serial troponins were negative. Dr. Stevens was consulted and did recommend a nuclear stress test. Nuclear stress test was performed and revealed an EF of 47% and fixed myocardial perfusion defect with a small region of reversible iron-infarct ischemia. This was consistent with her prior MPI. There was no new areas of reversible ischemia. She was cleared for discharge by Cardiology. She was also seen in consultation with Dr. Cline of Neurology given her presenting neurologic symptoms. MRI was ordered by Dr. Cline, which was negative for any CVA. All of the patient's presenting symptoms have resolved. She has had no further chest pain. The patient feels well today. She will follow up with her neurologist next week. DISCHARGE DISPOSITION: Home. DISCHARGE CONDITION: Stable. FOLLOWUP AND DISCHARGE INSTRUCTIONS: As mentioned, the patient will follow up with her neurologist. She has an appointment next week. She will continue aspirin and statin. She will continue aggressive risk factor modification. She will be discharged home in good condition today with negative workup regarding CVA and acute coronary syndrome. 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 Job ID: [id number]
--- NOTE | 2018-11-06 08:25 | HP ---
PRIMARY CARE DOCTOR: Dr. Elias Soriano. CODE STATUS: Full code. TIME OF EVALUATION: 6:00 a.m. CHIEF COMPLAINT: Chest pain. HISTORY OF PRESENT ILLNESS: A 53-year-old male patient with past medical history of coronary artery disease. The patient had stent thrombosis one year ago, has been seen by Dr. Herron/Dr. Canseco. At that time, no further intervention was offered. The patient came in now with severe sudden onset of chest pain in the middle of the chest radiating to the jaw with numbness in the left upper extremities with no clear triggers, no alleviating factors. The patient cannot relate any event to the beginning of the symptoms. REVIEW OF SYSTEMS: CONSTITUTIONAL: No fever, chills, or generalized weakness. RESPIRATORY: No cough, sputum production, or shortness of breath. CARDIOVASCULAR: No chest pain or palpitations. GASTROINTESTINAL: No nausea, no vomiting, diarrhea, or abdominal pain. RETAIL MANAGEMENT KEYHOLDER: No dizziness, headache, or feeling lightheaded. GENITOURINARY: No burning on urination. EXTREMITIES: No leg swelling. All other systems were reviewed and negative except for the findings mentioned above. PAST MEDICAL HISTORY: Positive for coronary artery disease, status post stent and stent thrombosis one year ago, GERD, diabetes type 2, pericarditis, high cholesterol, hypertension, and lupus. PAST SURGICAL HISTORY: The patient has a heart stent x1, cholecystectomy, left hand for dystrophy. PSYCHIATRIC HISTORY: Depression. SOCIAL HISTORY: No alcohol. No drugs. No smoking history. FAMILY HISTORY: The patient has a history of malignancy, diabetes type 2, hyperlipidemia, and hypertension. KNOWN ALLERGIES: Metoprolol, nitroglycerin transdermal, nitroglycerin. REPORTED MEDICATIONS: 1. Lyrica. 2. Aspirin. 3. Lisinopril. 4. Nexium. 5. Metformin. 6. Glipizide. 7. Robaxin. 8. NovoLog. 9. Isosorbide. 10. Magnesium oxide. 11. Lamisil. 12. Lipitor. 13. Metoprolol. 14. Duloxetine. 15. Fenofibrate. PHYSICAL EXAMINATION: VITAL SIGNS: On presentation, blood pressure 171/78 with the heart rate 62, respiratory rate was 18, temperature 97.4, oxygen saturation was 98% on room air. GENERAL APPEARANCE: The patient is alert, oriented, not in acute distress. HEENT: Eyes, normal conjunctivae. Moist oral mucosa. Anicteric. No JVD. RESPIRATORY: Bilateral air entry. No rales. No wheezes. Symmetric expansion. CARDIOVASCULAR: Normal rate, regular rhythm. No murmurs. No gallops. No edema. ABDOMEN: Soft. Normal bowel sounds. MUSCULOSKELETAL: Baseline range of motion and strength. SKIN: Warm, intact. No pallor. No rash. No redness. The patient has 2 discoid lesions in the right side of the , has been present for the past 2 months. Capillary refill seems to be intact. NEUROLOGIC: No evidence of any new focal weakness. Cranial nerves seems to be intact. PSYCHIATRIC: The patient is in good mood. No anxiety. Optimal judgment. DIAGNOSTIC DATA: EKG was reviewed. The patient has normal sinus rhythm with a rate of 62, left ventricular hypertrophy with QRS 90, QT corrected 410. Dissection protocol showed no aneurysm or dissection. LABORATORY DATA: Reviewed. The patient has a white count of 7.5, hemoglobin 13.2, hematocrit 38.4, MCV 86.3, and platelet count 204. Coagulation, PT 12.9, INR 1.0, PTT 29.3. Chemistry, sodium 133, potassium 3.9, chloride 97, carbon dioxide 26, anion gap 14, BUN 22, creatinine 1.14, GFR 50, glucose of 212. Troponins were negative x3. ASSESSMENT AND PLAN: The patient will be placed in the hospital with the following medical problems; 1. Chest pain, rule out acute coronary syndrome. The patient has a history of coronary artery disease, status post stent thrombosis one year ago. Dr. Canseco and Dr. Herron has seen the patient in the past and will be consulted since the patient is a high in probability for coronary artery disease. We will not do any further workup. We will follow recommendation from Cardiology. 2. Hyponatremia. Sodium 133, this is mild, no need for any acute intervention. We will monitor, we will treat accordingly. 3. Uncontrolled diabetes with sugar of 212, reconcile home medication. We will place the patient on sliding scale for optimal control. 4. Deep venous thrombosis prophylaxis. Job ID: [id number]
== END 2018-11-05 16:55 | disposition home or self-care (01) ==
LOC: ERS 21:51 → 2SW 23:38
PROVIDERS: ADMIT Hospitalist; ATTEND Hospitalist
DX: R07.89 Other chest pain (principal); I69.30 Unspecified sequelae of cerebral infarction; R53.1 Weakness; I25.5 Ischemic cardiomyopathy; I25.10 Atherosclerotic heart disease of native coronary artery without angina pectoris; E87.1 Hypo-osmolality and hyponatremia; E11.9 Type 2 diabetes mellitus without complications; K21.9 Gastro-esophageal reflux disease without esophagitis; I10 Essential (primary) hypertension; E78.00 Pure hypercholesterolemia, unspecified; F32.9 Major depressive disorder, single episode, unspecified; G43.909 Migraine, unspecified, not intractable, without status migrainosus; I25.2 Old myocardial infarction; Z95.5 Presence of coronary angioplasty implant and graft; Z88.8 Allergy status to other drugs, medicaments and biological substances; Z79.82 Long term (current) use of aspirin; Z79.4 Long term (current) use of insulin; Z79.899 Other long term (current) drug therapy
CPT/HCPCS: 36415; 36416; 70450; 70551; 71275; 78452; 80048; 80053; 82550; 84484; 85025; 85610; 85730; 93005; 93017; A9500; G0378; J0153; Q9966